=== PATIENT | male | born 1930 | race Caucasian/White ===

== ENCOUNTER 2016-11-11 23:29 | Inpatient (IN) | payer OTHER ==
[~2016-11-11] VITALS: Ht 168.9 cm; Wt 63.1 kg
[~2016-11-11 23:29] MED LIST: ALLO300T47 PO; ASPI-862 PO; CALC600T2 PO; CHOL100038 PO; CLOP75TA2 PO; HYDR100T25 PO; LEVO25TA58 PO; LISI-600 PO; METO50TA7 PO; MULT1TAB PO; OMEP40CA33 PO; SIMV40TA2 PO; VITA100075 PO
[2016-11-11 23:30] VITALS: BP_SYST 158
[2016-11-11] MEDS ORDERED: NITROGLYCERIN 1 INCH (GM) OINT. TP ONE (23:30)
--- NOTE | 2016-11-11 23:30 | NUR ---
Placed in room 1 . Placed on cardiac cath tech, blood pressure machine and pulse oximeter. To gown for exam. Side rails up. Report given to Priti PARISI.
--- NOTE | 2016-11-11 23:35 | NUR ---
ER at bedside examining patient.
[2016-11-11] MEDS ORDERED: MORPHINE 4 MG/ML INJ. SYRINGE IVP ONE (23:36)
[2016-11-11 23:54] LABS: BASOPHILS # (AUTO) 0.1 K/uL (0.0-0.2); BASOPHILS % (AUTO) 1.2 % (0.0-2.0); EOSINOPHILS # (AUTO) 0.1 K/uL (0.0-0.4); EOSINOPHILS % (AUTO) 1.6 % (0.0-4.0); HEMATOCRIT 42.5 % (36-54); HEMOGLOBIN 14.1 g/dL (14.0-18.0); LYMPHOCYTES # (AUTO) 0.7 K/uL (1.0-5.5); LYMPHOCYTES % (AUTO) 8.5 % (20.5-51.5); MEAN CORPUSCULAR HEMOGLOBIN 29 pg (27-31); MEAN CORPUSCULAR HGB CONC 33 % (32-36); MEAN CORPUSCULAR VOLUME 87 fL (79.0-98.0); MONOCYTES # (AUTO) 0.8 K/uL (0.0-1.0); MONOCYTES % (AUTO) 9.3 % (1.7-9.3); NEUTROPHILS # (AUTO) 6.6 K/uL (1.8-7.7); NEUTROPHILS % (AUTO) 79.4 % (40.0-70.0); PLATELET COUNT (AUTO) 206 K/uL (130-430); RED BLOOD CELL COUNT(AUTO) 4.91 MIL/uL (4.2-6.2); RED CELL DISTRIBUTION WIDTH 13.5 % (9.0-15.0); WHITE BLOOD COUNT (AUTO) 8.3 K/uL (4.8-10.8)
[2016-11-12 00:02] LABS: ANION GAP 4 (5-15); CHLORIDE 98 mmol/L (98-107); GLUCOSE 161 mg/dL (70-99); POTASSIUM 4.2 mmol/L (3.5-5.1); SODIUM SERUM 130 mmol/L (136-145)
[2016-11-12 00:03] LABS: UREA NITROGEN, BLOOD 12 mg/dL (8-21)
[2016-11-12 00:06] LABS: CREATININE 0.93 mg/dL (0.55-1.30)
[2016-11-12 00:07] LABS: ALANINE AMINOTRANSFERASE 52 U/L (12-78); ALBUMIN 3.4 g/dL (3.4-4.8); ASPARTATE AMINOTRANSFERASE 45 U/L (10-37); TOTAL BILIRUBIN 0.4 mg/dL (0.0-1.0); TOTAL PROTEIN, SERUM 6.2 g/dL (6.4-8.3)
[2016-11-12] MEDS ORDERED: ONDANSETRON HCL 4 MG/2 ML VIAL IVP ONE ×2 (00:15→01:00)
[2016-11-12] MEDS ORDERED: ONDANSETRON HCL 4 MG/2 ML VIAL ONE (00:22)
[2016-11-12 00:32] LABS: PROTHROMBIN TIME 11.2 SECS (9.5-12.5)
[2016-11-12] MEDS ORDERED: MORPHINE 4 MG/ML INJ. SYRINGE IVP ONE (01:00)
--- NOTE | 2016-11-12 01:13 | NUR ---
PT VOMITING, 400ML, ZOFRAN GIVEN, PT TOLERATED WELL. SAFETY PRECAUTIONS IN PLACE, WILL CONTINUE TO MONITOR.
[2016-11-12] MEDS ORDERED: METOCLOPRAMIDE HCL 10 MG/2 ML VIAL IVP ONE (01:15)
[2016-11-12] MEDS ORDERED: ASPIRIN 325 MG TABLET PO ONE (01:45)
[2016-11-12] MEDS ORDERED: HYDR100T25 PO (01:53)
--- NOTE | 2016-11-12 01:55 | NUR ---
Reviewed with Dr. mSith that pt made need stronger nausea medication and pain medication PRN on telephone. No new orders at this time.
[2016-11-12] MEDS ORDERED: ONDANSETRON HCL 4 MG/2 ML VIAL IVP PRN ×2 (02:00→09:15)
--- NOTE | 2016-11-12 02:25 | NUR ---
Patient will be admitted to care of DR. RONQUILLO. Admitted to TELEMETRY unit. Will go to room 111A. ALL Belongings TAKEN W/ PT. Summary report printed. Report will be given at bedside TO NURSE AILIN GRANDE.
--- NOTE | 2016-11-12 02:27 | NUR ---
ADMISSION: The patient, WILLIAM KARIMI, 86 y/o, M admitted by AAMIR RONQUILLO MD, was given written information regarding hospital policies, unit procedures and contact persons.
[2016-11-12 02:28] VITALS: BP_SYST 159
--- NOTE | 2016-11-12 02:32 | NUR ---
CONSULTATION PAGED REASON FOR CONSULTATION:CHEST PAIN WAS CONSULT CALLED?Y PERSON WHO WAS NOTIFIED:[employer] Pharm[employer]ARIANNAA APPLICATION INTEGRATION ENGINEER #[id number] CONSULTING PHYSICIAN:KENIA PENA (YOHANNES HALL CHRONOGRAPH OPERATOR) TECHNICAL MARKETING CONSULTANT SPECIALTY:CARDIO TECHNICAL MARKETING CONSULTANT PHONE NUMBER:[phone]
--- NOTE | 2016-11-12 03:00 | NUR ---
ROUNDS RECEIVED PATIENT IN BED, NOT IN DISTRESS, BP-159/100 AT THIS TIME, DENIES ANY PAIN AND DISCOMFORT AT THIS TIME. ADMISSION ASSESSMENT DONE AND DOCUMENTED. ORIENTED TO HIS ROOM, TV, PHONE AND CALL LIGHT. PLAN OF CARE DISCUSSED AND PATIENT VERBALIZED UNDERSTANDING. NEEDS ATTENDED TO. SAFETY AND FALL MEASURES IN PLACED. CALL LIGHT PLACED WITHIN REACH.
--- NOTE | 2016-11-12 03:31 | NUR ---
Paged DR. RONQUILLO ( DR. Leroy ornamental ironworking supervisor) Spoke with Silke, phone #[phone]
--- NOTE | 2016-11-12 03:42 | NUR ---
DR. LEDEZMA PAGED AND TALKED TO DR. LEDEZMA, THE HOME THEATER INSTALLER, PATIENT'S BP-163/100, P-100. NEW ORDER GIVEN FOR CLONIDINE 0.1 MG PO X1 NOW. INFORMED ALSO OF PATIENT'S NA-130 AND CLONIDINE PATCH Q TUESDAY, SAID HOLD CLONIDINE PATCH FOR NOW. WILL CONTINUE TO MONITOR.
[2016-11-12] MEDS ORDERED: cloNIDine HCL 0.1 MG TABLET PO ONE (03:45)
[2016-11-12] MEDS ORDERED: PANTOPRAZOLE SODIUM 40 MG/VIAL (PROTONIX) IVP ONE (03:45)
[2016-11-12] MEDS: PANTOPRAZOLE SODIUM 40 MG/VIAL (PROTONIX) IVP SCH ×2 (03:56→09:13)
[2016-11-12 04:00] VITALS: BP_SYST 142
--- NOTE | 2016-11-12 04:00 | NUR ---
PATIENT RESTING: Patient resting quietly. No acute distress noted. Vital signs within normal range.
--- NOTE | 2016-11-12 06:50 | NUR ---
CLOSING NOTES PATIENT ASLEEP AT THIS TIME, NO SIGNS OF ANY PAIN AND DISCOMFORT NOTED, NEEDS ATTENDED TO. SAFETY MEASURES MAINTAINED. CALL LIGHT PLACED WITHIN REACH.
[2016-11-12] MEDS ORDERED: NITROGLYCERIN 0.4 MG TAB.SUBL SL PRN (08:00)
[2016-11-12 08:30] VITALS: BP_SYST 157
--- NOTE | 2016-11-12 08:40 | NUR ---
Received patient in the morning coughing continuously, his 02 Saturation was 86 in seated position, and in lying position he desaturated to 77%. I did inform Dr Leroy at nursing station, and orders written. The patient co chest pain, and I did give Nitro 0.4mg tab SL, and repeated 2 times. Pain level 8/10, and did decrease to 4-5/10. Sukumar Hu RN
[2016-11-12] MEDS ORDERED: ALBUTEROL SULFATE 0.083% 2.5 MG/3 ML VIAL.NEB INH PRN (09:00)
[2016-11-12] MEDS ORDERED: METOPROLOL SUCCINATE 50 MG TAB.SR.24H (TOPROL XL) PO SCH (09:00)
[2016-11-12] MEDS ORDERED: methylPREDNISolone SOD SUCC/PF 62.5 MG/ML VIAL IVP SCH (09:00)
[2016-11-12] MEDS ORDERED: IPRATROPIUM BROM 0.5 MG/2.5 ML VIAL.NEB (ATROVENT) INH PRN (09:00)
[2016-11-12] MEDS ORDERED: FUROSEMIDE 20 MG/2 ML VIAL IVP ONE (09:00)
[2016-11-12] MEDS ORDERED: ENOXAPARIN SODIUM 40 MG/0.4 ML SYRINGE SUBCUT SCH (09:00)
[2016-11-12] MEDS ORDERED: ASPIRIN 325 MG TABLET (ECOTRIN) PO SCH (09:00)
[2016-11-12] MEDS ORDERED: HEPARIN 25,000 UNITS/D5W 250ML 250 ML IV PRN (09:00)
[2016-11-12] MEDS ORDERED: FUROSEMIDE 20 MG/2 ML VIAL ONE (09:05)
[2016-11-12] MEDS ORDERED: IPRATROPIUM/ALBUTEROL SULFATE 3 ML AMPUL.NEB ONE (09:06)
--- NOTE | 2016-11-12 09:08 | NUR ---
CALLED PULMONOLOGY CONSULT TO DR ZAPATA, RE: SOB. SPOKE TO MAYKEL
[2016-11-12] MEDS ORDERED: ACETAMINOPHEN 325 MG TABLET PO PRN (09:15)
[2016-11-12] MEDS ORDERED: IPRATROPIUM BROM 0.5 MG/2.5 ML VIAL.NEB (ATROVENT) INH SCH (11:00)
[2016-11-12] MEDS ORDERED: ALBUTEROL SULFATE 0.083% 2.5 MG/3 ML VIAL.NEB INH SCH (11:00)
[2016-11-12] MEDS ORDERED: HEPARIN 25,000 UNITS in 250 ML PREMIX IV PRN (11:15)
[2016-11-12] MEDS ORDERED: HEPARIN SODIUM,PORCINE 3000 UNITS/0.6 ML BOLUS IVP PRN (11:15)
[2016-11-12] MEDS ORDERED: HEPARIN SODIUM,PORCINE 2000 UNITS/0.4 ML BOLUS IVP PRN (11:15)
[2016-11-12] MEDS ORDERED: HEPARIN SODIUM,PORCINE 5000 UNITS/ML VIAL IV ONE (11:30)
[2016-11-12 11:45] VITALS: BP_SYST 150
[2016-11-12 12:30] VITALS: BP_SYST 152
--- NOTE | 2016-11-12 12:33 | NUR ---
HCP/PA: Polo Garcia made her aware of transfer to [facility] at 2:30pm today via ACLS.
--- NOTE | 2016-11-12 13:40 | NUR ---
Patient being transferred to [facility], and I called nurse assisting with angiogram, and gave report, and also did give report to the sql developer that is transporting patient. Sukumar Hu RN
[2016-11-12 16:57] LABS: BLOOD GAS PH 7.239 (7.350-7.450)
[2016-11-12 16:58] LABS: ABG TOTAL HEMOGLOBIN 16.2 G/dL (12.0-18.0); BLOOD GAS BASE EXCESS -4.8 mmol/L (-3.0-3.0); BLOOD GAS COHb% 0.8 % (0.5-1.5); BLOOD GAS HHB 9.7 % (0.0-6.0); BLOOD O2Hb% 89.1 % (94.0-97.0)
[2016-11-12] MEDS ORDERED: SIMVASTATIN 40 MG TABLET PO SCH (21:00)
[2016-11-12] MEDS ORDERED: OMEPRAZOLE 20 MG CAPSULE.DR (PriLOSEC) PO SCH (21:00)
[2016-11-12] MEDS ORDERED: hydrALAZINE HCL 25 MG TABLET PO SCH (21:00)
[2016-11-13] MEDS ORDERED: LEVOTHYROXINE SODIUM 0.025 MG TABLET PO SCH (07:00)
[2016-11-13] MEDS ORDERED: LISINOPRIL 20 MG TABLET PO SCH (09:00)
[2016-11-13] MEDS ORDERED: CLOPIDOGREL BISULFATE 75 MG TABLET PO SCH (09:00)
[2016-11-13] MEDS ORDERED: ALLOPURINOL 300 MG TABLET (ZYLOPRIM) PO SCH (09:00)
== END 2016-11-12 13:40 | disposition short-term general hospital (02) | DRG 280 ==
LOC: SED 23:29 → STU 11-12 01:55
DX: I21.4 Non-ST elevation (NSTEMI) myocardial infarction (principal); I50.21 Acute systolic (congestive) heart failure; J84.9 Interstitial pulmonary disease, unspecified; I25.10 Atherosclerotic heart disease of native coronary artery without angina pectoris; E03.9 Hypothyroidism, unspecified; E78.5 Hyperlipidemia, unspecified; I25.2 Old myocardial infarction; Z87.891 Personal history of nicotine dependence; Z95.5 Presence of coronary angioplasty implant and graft; Z88.1 Allergy status to other antibiotic agents; Z88.0 Allergy status to penicillin; Z88.6 Allergy status to analgesic agent; Z79.899 Other long term (current) drug therapy; I11.0 Hypertensive heart disease with heart failure
CPT/HCPCS: 36415; 36600; 71010; 71250-TC; 80053; 82803-TC; 83880; 84484; 85025; 85379; 85610-TC; 85730-TC; 93005; 93306; 93970; 94640; 94760; 96374; 96375; 99285; C9113; J1650; J1940; J2270; J2405; J2765; J2930

== ENCOUNTER 2019-07-28 19:49 | Inpatient (IN) | payer OTHER ==
[~2019-07-28] VITALS: Ht 167.6 cm; Wt 72.8 kg
[~2019-07-28 19:49] MED LIST changes: +ALLO-57 PO; -ALLO300T47 PO; +LEVO25TA2 PO; -LEVO25TA58 PO
[2019-07-28 20:00] VITALS: BP_SYST 137
--- NOTE | 2019-07-28 20:08 | NUR ---
Placed in room 1 . Placed on robotics specialist, blood pressure machine and pulse oximeter. To gown for exam. Side rails up. Report given to AILIN BOURNE
--- NOTE | 2019-07-28 20:15 | NUR ---
Patient was BIB family complain of cough x 3 days. Pt denies fever, N/V or diarrhea. Per patient, he has had pneumonia 8 times prior and states "this feels similar to when I had pneumonia." Pt also states when he coughs he feels pain to his chest. Pt is satting at 92% on room air. No other injuries/complaints per patient or noted.
--- NOTE | 2019-07-28 20:25 | NUR ---
ER at bedside examining patient.
[2019-07-28] MEDS ORDERED: IPRATROPIUM/ALBUTEROL SULFATE 3 ML AMPUL.NEB (DUONEB) INH ONE (20:30)
[2019-07-28] MEDS ORDERED: NACL 0.9% 1,000 ML IV ONE (20:30)
--- NOTE | 2019-07-28 20:35 | NUR ---
RT at bedside administering breathing treatment.
[2019-07-28 20:45] LABS: BASOPHILS % (AUTO) 0.3 % (0.0-2.0); EOSINOPHILS # (AUTO) 0.1 K/uL (0.0-0.4); EOSINOPHILS % (AUTO) 0.9 % (0.0-4.0); HEMATOCRIT 39.2 % (36-54); HEMOGLOBIN 12.9 g/dL (14.0-18.0); LYMPHOCYTES # (AUTO) 0.6 K/uL (1.0-5.5); LYMPHOCYTES % (AUTO) 5.6 % (20.5-51.5); MEAN CORPUSCULAR HEMOGLOBIN 28 pg (27-31); MEAN CORPUSCULAR HGB CONC 33 % (32-36); MEAN CORPUSCULAR VOLUME 84 fL (79.0-98.0); MONOCYTES # (AUTO) 1.3 K/uL (0.0-1.0); MONOCYTES % (AUTO) 12.6 % (1.7-9.3); NEUTROPHILS # (AUTO) 8.3 K/uL (1.8-7.7); NEUTROPHILS % (AUTO) 80.6 % (40.0-70.0); PLATELET COUNT (AUTO) 170 K/uL (130-430); RED BLOOD CELL COUNT(AUTO) 4.67 MIL/uL (4.2-6.2); RED CELL DISTRIBUTION WIDTH 17.4 % (9.0-15.0); WHITE BLOOD COUNT (AUTO) 10.3 K/uL (4.8-10.8)
[2019-07-28 20:52] LABS: ANION GAP 8 (5-15); CALCIUM 8.3 mg/dL (8.4-11.0); CHLORIDE 100 mmol/L (98-107); CREATININE 1.34 mg/dL (0.55-1.30); GLUCOSE 119 mg/dL (70-99); POTASSIUM 4.3 mmol/L (3.5-5.1); SODIUM SERUM 136 mmol/L (136-145); UREA NITROGEN, BLOOD 21 mg/dL (8-21)
[2019-07-28 21:01] LABS: ALANINE AMINOTRANSFERASE 153 U/L (12-78); ALBUMIN 3.1 g/dL (3.4-4.8); ASPARTATE AMINOTRANSFERASE 120 U/L (10-37); TOTAL BILIRUBIN 0.5 mg/dL (0.0-1.0)
[2019-07-28 21:04] LABS: INR 1.1 (0.80-1.20); PROTHROMBIN TIME 11.2 SECS (9.5-12.5)
--- NOTE | 2019-07-28 21:53 | NUR ---
Respiratory at bedside for ABG
[2019-07-28] MEDS ORDERED: methylPREDNISolone SOD SUCC/PF 62.5 MG/ML VIAL IVP ONE (22:00)
[2019-07-28] MEDS ORDERED: APIX5TAB4 PO (22:14)
[2019-07-28] MEDS ORDERED: FURO-150 PO (22:15)
[2019-07-28] MEDS ORDERED: LEVO100T9 PO (22:16)
[2019-07-28] MEDS ORDERED: ASPI-1153 PO (22:17)
[2019-07-28 22:18] LABS: BILIRUBIN,URINE NEGATIVE (NEGATIVE); BLOOD, URINE NEGATIVE (NEGATIVE); CLARITY/URINE CLEAR (CLEAR); COLOR,URINE YELLOW (YELLOW); GLUCOSE,URINE NEGATIVE (NEGATIVE); KETONES,URINE NEGATIVE (NEGATIVE); LEUKOCYTE ESTERASE ,URINE NEGATIVE (NEGATIVE); NITRITE, URINE NEGATIVE (NEGATIVE); PROTEIN URINE NEGATIVE (NEGATIVE); UROBILINOGEN,URINE 0.2 (0.2-1.0)
[2019-07-28] MEDS ORDERED: METO25TA3 PO (22:18)
[2019-07-28] MEDS ORDERED: AMI200 PO (22:18)
[2019-07-28] MEDS ORDERED: CALC-995 PO (22:22)
[2019-07-28] MEDS ORDERED: PRO40 PO (22:24)
[2019-07-28] MEDS ORDERED: NOR10 PO (22:25)
[2019-07-28] MEDS ORDERED: LISI40TA4 PO (22:26)
--- NOTE | 2019-07-28 22:27 | NUR ---
Medication reconciliation completed with information provided by patient. Any prior medication reconciliation on file was reviewed and corrected.
--- NOTE | 2019-07-28 22:42 | NUR ---
Medications were given, pt tolerate well. No adverse reaction, will continue to monitor.
--- NOTE | 2019-07-28 22:45 | NUR ---
Patient will be admitted to care of Dr. Leroy. Admitted to Telemetry unit. Will go to room 108 C. Belongings list completed. Complete and up to date summary report printed. SBAR report to be given at bedside with opportunity for questions.
--- NOTE | 2019-07-28 22:46 | NUR ---
Transfer to Telemetry via ACLS protocol. Licensed nurse present. IV present no signs or symptoms of infiltration.
--- NOTE | 2019-07-28 23:00 | NUR ---
ADMIT NOTE Received pt from ER to the floor with a diagnosis of PNA. Admission process initiated. patient oriented to pain management, safety and call light-teach back done.
[2019-07-28 23:08] VITALS: BP_SYST 128
--- NOTE | 2019-07-28 23:10 | NUR ---
INITIAL ASSESSMENT PATIENT IS LAYING IN BED AND STABLE. FAMILY IS BY BEDSIDE AT THIS TIME. EDUCATED PATIENT AND FAMILY ABOUT CALL LIGHT. CALL LIGHT EDUCATION IS SUCCESSFUL AT THIS TIME AND PATIENT IS ABLE TO DEMONSTRATE USAGE. PLAN OF CARE WAS DISCUSSED WITH PATIENT AND FAMILY AT THIS TIME. PATIENT HAS A LEFT 22 G AND IS PATENT. WOUND PICTURES ARE TAKEN AT THIS TIME. PATIENT VERBALIZES PAIN OF 5. PATIENT STATES THIS IS TOLERABLE PAIN AND REQUEST TO SLEEP. WILL CONTINUE TO MONITOR PAIN AND RESPIRATORY STATUS. BED IS LOCKED, ALARMED, AND AT THE LOWEST POSITION. DANNY LIGHT IN REACH. FALL, SAFETY, ASPIRATION, AND RESPIRATORY PRECAUTIONS WILL BE PLACED THROUGHOUT THE SHIFT.
[2019-07-29 00:30] VITALS: BP_SYST 120
--- NOTE | 2019-07-29 01:10 | NUR ---
EDUCATION EDUCATED PATIENT ON DIAPER/UNDERGARMENT. PATIENT REFUSED AND REQUESTED TO CONTINUE TO WEAR IT. WILL CONTINUE TO EDUCATED. DESPITE EDUCATIONAL EFFORTS PATIENT REQUESTED TO WEAR HIS OWN SOCKS. PATIENT IS CURRENTLY WEARING REGULAR SOCKS. WILL CONTINUE TO EDUCATE. OTHERWISE, PATIENT IS STABLE AND SHOWS NO S/S OF RESPIRATORY DISTRESS. CALL LIGHT IN REACH. WILL CONTINUE TO MONITOR.
--- NOTE | 2019-07-29 02:10 | NUR ---
ROUNDS PATIENT IS LAYING IN BED AND REQUESTED JELLO AT THIS TIME. PATIENT IS OTHERWISE STABLE. NO S/S OF RESPIRATORY DISTRESS NOTED. CALL LIGHT IN REACH. BED IS LOCKED, ALARMED, AND AT THE LOWEST POSITION.
--- NOTE | 2019-07-29 02:25 | NUR ---
DR BOWMAN - ROUNDS DR. BOWMAN CAME IN AND SAW THE PATIENT.
[2019-07-29] MEDS ORDERED: ALBUTEROL SULFATE 0.083% 2.5 MG/3 ML VIAL.NEB INH PRN (02:30)
[2019-07-29] MEDS ORDERED: KETOROLAC TROMETHAMINE 15 MG VIAL IVP PRN (02:45)
--- NOTE | 2019-07-29 04:00 | NUR ---
ROUNDS PATIENT IS SLEEPING IN BED. NO S/S OF RESPIRATORY DISTRESS NOTED. CALL LIGHT IN REACH. BED IS LOCKED, ALARMED, AND AT THE LOWEST POSITION. WILL CONTINUE TO MONITOR.
[2019-07-29 05:28] VITALS: BP_SYST 120
--- NOTE | 2019-07-29 06:00 | NUR ---
CLOSING NOTES PATIENT IS STABLE AND IN BED. NO S/S OF RESPIRATORY DISTRESS NOTED. CALL LIGHT IN REACH. BED IS LOCKED, ALARMED, AND AT THE LOWEST POSITION. FALL, SAFETY, ASPIRATION, AND CONTACT PRECAUTIONS HAS BEEN PLACED THROUGHOUT THE SHIFT. WILL CONTINUE TO MONITOR UNTIL REPORT IS GIVEN TO AM NURSE AT BEDSIDE.
[2019-07-29] MEDS: LEVOTHYROXINE SODIUM 0.1 MG TABLET PO SCH (06:18)
[2019-07-29 07:41] LABS: BASOPHILS % (AUTO) 0.2 % (0.0-2.0); HEMATOCRIT 34.5 % (36-54); HEMOGLOBIN 11.6 g/dL (14.0-18.0); LYMPHOCYTES # (AUTO) 0.2 K/uL (1.0-5.5); LYMPHOCYTES % (AUTO) 3.2 % (20.5-51.5); MEAN CORPUSCULAR HEMOGLOBIN 28 pg (27-31); MEAN CORPUSCULAR HGB CONC 34 % (32-36); MEAN CORPUSCULAR VOLUME 85 fL (79.0-98.0); MONOCYTES # (AUTO) 0.2 K/uL (0.0-1.0); MONOCYTES % (AUTO) 2.1 % (1.7-9.3); NEUTROPHILS # (AUTO) 7.3 K/uL (1.8-7.7); NEUTROPHILS % (AUTO) 94.5 % (40.0-70.0); PLATELET COUNT (AUTO) 151 K/uL (130-430); RED BLOOD CELL COUNT(AUTO) 4.08 MIL/uL (4.2-6.2); RED CELL DISTRIBUTION WIDTH 17.5 % (9.0-15.0); WHITE BLOOD COUNT (AUTO) 7.7 K/uL (4.8-10.8)
[2019-07-29 07:58] LABS: ALANINE AMINOTRANSFERASE 138 U/L (12-78); ALBUMIN 2.4 g/dL (3.4-4.8); ANION GAP 5 (5-15); ASPARTATE AMINOTRANSFERASE 104 U/L (10-37); CHLORIDE 102 mmol/L (98-107); CREATININE 1.09 mg/dL (0.55-1.30); GLUCOSE 186 mg/dL (70-99); POTASSIUM 4.5 mmol/L (3.5-5.1); SODIUM SERUM 135 mmol/L (136-145); TOTAL BILIRUBIN 0.5 mg/dL (0.0-1.0); UREA NITROGEN, BLOOD 19 mg/dL (8-21)
[2019-07-29 08:08] VITALS: BP_SYST 125
--- NOTE | 2019-07-29 08:12 | NUR ---
am rounds: Patient is oriented x4. Non productive cough noted with pain at 4/10.Ambulates to the bathroom independently. With oxygen 2 li/min via nasal cannula with 95% saturation. Daughter in law at the bedside.
[2019-07-29] MEDS: ASPIRIN 81 MG TABLET(ECOTRIN) PO SCH (09:53)
[2019-07-29] MEDS: AMIODARONE HCL 200 MG TABLET PO SCH (09:53)
[2019-07-29] MEDS: FUROSEMIDE 20 MG TABLET PO SCH (09:53)
[2019-07-29] MEDS: ALLOPURINOL 300 MG TABLET (ZYLOPRIM) PO SCH (09:53)
[2019-07-29] MEDS: PANTOPRAZOLE SODIUM 40 MG TAB PO SCH (09:53)
[2019-07-29] MEDS: METOPROLOL SUCCINATE 25 MG TAB.SR.24H (TOPROL XL) PO SCH (09:54)
[2019-07-29] MEDS: APIXABAN 2.5 MG TABLET PO SCH ×2 (09:56→20:49)
[2019-07-29] MEDS: LISINOPRIL 20 MG TABLET PO SCH ×2 (09:58→20:46)
[2019-07-29] MEDS: amLODIPine BESYLATE 10 MG TABLET PO SCH (09:59)
--- NOTE | 2019-07-29 11:00 | NUR ---
md rounds: seen by Dr. Sandra Walters. Orders noted.
[2019-07-29 11:27] VITALS: BP_SYST 109
--- NOTE | 2019-07-29 15:19 | NUR ---
Incentive spirometer: Patient is using the incentive spirometer, reaches level 1500.
[2019-07-29 15:51] VITALS: BP_SYST 114
--- NOTE | 2019-07-29 18:40 | NUR ---
End of shift: Needs attended. No change in assessment. Family member at bedside.
[2019-07-29 19:30] VITALS: BP_SYST 121
--- NOTE | 2019-07-29 19:30 | NUR ---
INITIAL ASSESSMENT PATIENT IS LAYING IN BED AND STABLE. FAMILY IS BY BEDSIDE. PLAN OF CARE DISCUSSED WITH PATIENT AT THIS TIME. PATIENT SUCCESSFULLY DEMONSTRATES USAGE OF CALL LIGHT AT THIS TIME. BED IS LOCKED, ALARMED, AND AT THE LOWEST POSITION. FALL, SAFETY, ASPIRATION, AND RESPIRATORY PRECAUTIONS HAS BEEN PLACED THROUGHOUT THE SHIFT. PATIENT VERBALIZES NO PAIN AT THIS TIME. WILL CONTINUE TO MONITOR.
[2019-07-29] MEDS: SIMVASTATIN 40 MG TABLET PO SCH (20:45)
[2019-07-29] MEDS: TEMAZEPAM 7.5 MG CAPSULE PO PRN (20:46)
[2019-07-29] MEDS: LEVOFLOXACIN 500 MG/D5W 100 ML IV SCH (20:52)
--- NOTE | 2019-07-29 22:30 | NUR ---
TRANSFER OF CARE TRANSFER OF CARE GIVEN TO AILIN ROTHMAN AT BEDSIDE AT THIS TIME. PATIENT IS STABLE. NO S/S OF RESPIRATORY DISTRESS NOTED. CALL LIGHT IN REACH. BED IS LOCKED, ALARMED, AND AT THE LOWEST POSITION.
[2019-07-30] VITALS: BP_SYST 109
[2019-07-30 04:00] VITALS: BP_SYST 117
--- NOTE | 2019-07-30 06:34 | NUR ---
AWAKE AND AMBULATED TO THE BATHROOM WITH FAMILY ASSIST.
[2019-07-30] MEDS: LEVOTHYROXINE SODIUM 0.1 MG TABLET PO SCH (06:48)
--- NOTE | 2019-07-30 06:59 | NUR ---
Nutrition Update Hieu Scale 18 noted. Pt admitted for Pneumonia Diet: Cardiac BMI: 26 kg/m2 RD to follow per nutrition care standards.
[2019-07-30 07:36] LABS: BASOPHILS % (AUTO) 0.1 % (0.0-2.0); HEMATOCRIT 34.4 % (36-54); HEMOGLOBIN 11.5 g/dL (14.0-18.0); LYMPHOCYTES # (AUTO) 0.5 K/uL (1.0-5.5); LYMPHOCYTES % (AUTO) 3.4 % (20.5-51.5); MEAN CORPUSCULAR HEMOGLOBIN 28 pg (27-31); MEAN CORPUSCULAR HGB CONC 33 % (32-36); MEAN CORPUSCULAR VOLUME 84 fL (79.0-98.0); MONOCYTES % (AUTO) 6.5 % (1.7-9.3); NEUTROPHILS # (AUTO) 13.8 K/uL (1.8-7.7); PLATELET COUNT (AUTO) 185 K/uL (130-430); RED BLOOD CELL COUNT(AUTO) 4.12 MIL/uL (4.2-6.2); RED CELL DISTRIBUTION WIDTH 17.4 % (9.0-15.0); WHITE BLOOD COUNT (AUTO) 15.3 K/uL (4.8-10.8)
[2019-07-30 07:51] LABS: ALANINE AMINOTRANSFERASE 168 U/L (12-78); ALBUMIN 2.4 g/dL (3.4-4.8); ANION GAP 3 (5-15); ASPARTATE AMINOTRANSFERASE 97 U/L (10-37); CALCIUM 8.3 mg/dL (8.4-11.0); CHLORIDE 99 mmol/L (98-107); CREATININE 0.96 mg/dL (0.55-1.30); GLUCOSE 131 mg/dL (70-99); POTASSIUM 4.6 mmol/L (3.5-5.1); SODIUM SERUM 128 mmol/L (136-145); TOTAL BILIRUBIN 0.4 mg/dL (0.0-1.0); UREA NITROGEN, BLOOD 27 mg/dL (8-21)
[2019-07-30 08:00] VITALS: BP_SYST 117
--- NOTE | 2019-07-30 08:00 | NUR ---
initial notes rec patient awake alert with ivl on the l ac intact. no infiltration noted. resp easy and unlabored and no sob noted. bed to the lowest position and side rails up and locked. call light within reached and knows when to call for assistance. family at bedside. denies pain at this time.
[2019-07-30] MEDS: APIXABAN 2.5 MG TABLET PO SCH ×2 (09:00→21:24)
[2019-07-30] MEDS: PANTOPRAZOLE SODIUM 40 MG TAB PO SCH (09:01)
[2019-07-30] MEDS: amLODIPine BESYLATE 10 MG TABLET PO SCH (09:02)
[2019-07-30] MEDS: ALLOPURINOL 300 MG TABLET (ZYLOPRIM) PO SCH (09:02)
[2019-07-30] MEDS: ASPIRIN 81 MG TABLET(ECOTRIN) PO SCH (09:02)
[2019-07-30] MEDS: LISINOPRIL 20 MG TABLET PO SCH ×2 (09:03→21:21)
[2019-07-30] MEDS: FUROSEMIDE 20 MG TABLET PO SCH (09:03)
[2019-07-30] MEDS: AMIODARONE HCL 200 MG TABLET PO SCH (09:04)
[2019-07-30] MEDS: METOPROLOL SUCCINATE 25 MG TAB.SR.24H (TOPROL XL) PO SCH (09:05)
--- NOTE | 2019-07-30 10:00 | NUR ---
rounds due meds given and lorene well. call light within reached. no sob noted.
[2019-07-30 11:36] VITALS: BP_SYST 91
--- NOTE | 2019-07-30 14:00 | NUR ---
rounds sleeping at intervals. no sob noted.
[2019-07-30 15:49] VITALS: BP_SYST 117
--- NOTE | 2019-07-30 16:46 | NUR ---
md dr lee at bedside to see patient. no sob noted. bed to the lowest position and side rails up and locked. family in the room.
[2019-07-30] MEDS ORDERED: ALBUTEROL SULFATE 0.083% 2.5 MG/3 ML VIAL.NEB INH PRN (17:15)
[2019-07-30] MEDS ORDERED: BENZOCAINE/MENTHOL 1 EACH LOZENGE MM PRN (17:15)
[2019-07-30] MEDS ORDERED: IPRATROPIUM BROM 0.5 MG/2.5 ML VIAL.NEB (ATROVENT) INH PRN (17:15)
--- NOTE | 2019-07-30 18:40 | NUR ---
closing notes seen by dr freire at bedside and with orders. no osb noted. bed to the lowest position and side rails u p and locked. family at bedside.
[2019-07-30] MEDS: IPRATROPIUM BROM 0.5 MG/2.5 ML VIAL.NEB (ATROVENT) INH SCH (18:56)
[2019-07-30] MEDS: ALBUTEROL SULFATE 0.083% 2.5 MG/3 ML VIAL.NEB INH SCH (18:57)
[2019-07-30 20:38] VITALS: BP_SYST 112
[2019-07-30] MEDS: LEVOFLOXACIN 500 MG/D5W 100 ML IV SCH (21:22)
[2019-07-30] MEDS: SIMVASTATIN 40 MG TABLET PO SCH (21:22)
[2019-07-30] MEDS: TEMAZEPAM 7.5 MG CAPSULE PO PRN (21:23)
[2019-07-31] MEDS: IPRATROPIUM BROM 0.5 MG/2.5 ML VIAL.NEB (ATROVENT) INH SCH ×4 (00:45→20:11)
[2019-07-31] MEDS: ALBUTEROL SULFATE 0.083% 2.5 MG/3 ML VIAL.NEB INH SCH ×4 (00:45→20:11)
[2019-07-31 04:23] VITALS: BP_SYST 131
[2019-07-31] MEDS: LEVOTHYROXINE SODIUM 0.1 MG TABLET PO SCH (06:23)
[2019-07-31 07:27] LABS: BASOPHILS % (AUTO) 0.2 % (0.0-2.0); EOSINOPHILS # (AUTO) 0.1 K/uL (0.0-0.4); EOSINOPHILS % (AUTO) 0.8 % (0.0-4.0); HEMATOCRIT 32.9 % (36-54); LYMPHOCYTES # (AUTO) 0.7 K/uL (1.0-5.5); LYMPHOCYTES % (AUTO) 7.2 % (20.5-51.5); MEAN CORPUSCULAR HEMOGLOBIN 28 pg (27-31); MEAN CORPUSCULAR HGB CONC 34 % (32-36); MEAN CORPUSCULAR VOLUME 84 fL (79.0-98.0); MONOCYTES % (AUTO) 11.1 % (1.7-9.3); NEUTROPHILS # (AUTO) 7.3 K/uL (1.8-7.7); NEUTROPHILS % (AUTO) 80.7 % (40.0-70.0); PLATELET COUNT (AUTO) 184 K/uL (130-430); RED BLOOD CELL COUNT(AUTO) 3.93 MIL/uL (4.2-6.2); RED CELL DISTRIBUTION WIDTH 17.3 % (9.0-15.0)
[2019-07-31 07:59] LABS: ALANINE AMINOTRANSFERASE 131 U/L (12-78); ALBUMIN 2.2 g/dL (3.4-4.8); ANION GAP 5 (5-15); ASPARTATE AMINOTRANSFERASE 57 U/L (10-37); CALCIUM 7.8 mg/dL (8.4-11.0); CHLORIDE 102 mmol/L (98-107); CREATININE 0.98 mg/dL (0.55-1.30); GLUCOSE 110 mg/dL (70-99); POTASSIUM 4.9 mmol/L (3.5-5.1); SODIUM SERUM 135 mmol/L (136-145); TOTAL BILIRUBIN 0.5 mg/dL (0.0-1.0); UREA NITROGEN, BLOOD 22 mg/dL (8-21)
[2019-07-31 08:00] VITALS: BP_SYST 110
--- NOTE | 2019-07-31 08:00 | NUR ---
initial notes rec patient awake alert with ivl in place. no infiltration noted. resp easy and unlabored. no sob noted. bed to the lowest position and side rails up and locked. call light within reached and knows when to call for assistance.
[2019-07-31] MEDS: ASPIRIN 81 MG TABLET(ECOTRIN) PO SCH (10:25)
[2019-07-31] MEDS: ALLOPURINOL 300 MG TABLET (ZYLOPRIM) PO SCH (10:25)
[2019-07-31] MEDS: APIXABAN 2.5 MG TABLET PO SCH ×2 (10:26→20:37)
[2019-07-31] MEDS: FUROSEMIDE 20 MG TABLET PO SCH (10:27)
[2019-07-31] MEDS: amLODIPine BESYLATE 10 MG TABLET PO SCH (10:27)
[2019-07-31] MEDS: PANTOPRAZOLE SODIUM 40 MG TAB PO SCH (10:28)
[2019-07-31] MEDS: AMIODARONE HCL 200 MG TABLET PO SCH (10:28)
[2019-07-31] MEDS: LISINOPRIL 20 MG TABLET PO SCH ×2 (10:29→20:31)
[2019-07-31] MEDS: METOPROLOL SUCCINATE 25 MG TAB.SR.24H (TOPROL XL) PO SCH (10:30)
--- NOTE | 2019-07-31 11:00 | NUR ---
rounds seen by dr wilson at bedside and meds given also and lorene well.
[2019-07-31 11:28] VITALS: BP_SYST 123
--- NOTE | 2019-07-31 14:00 | NUR ---
rounds seen by dr lee and with orders. pt ambulated on the hallway and desat after the walk 80%. no sob noted.
[2019-07-31] MEDS ORDERED: LEVO500T89 PO (14:15)
[2019-07-31] MEDS ORDERED: ALBU2.5V7 INH (14:17)
[2019-07-31 15:44] VITALS: BP_SYST 113
--- NOTE | 2019-07-31 16:37 | NUR ---
MD CLARA GIRON CALLED AT SPOKE WITH DR.JANDIAL TORO RAJNISH RIPPER OPERATOR.
--- NOTE | 2019-07-31 16:51 | NUR ---
rounds dr wilson was called re abg result and ordered for patient to go home with o2. maru nuñez was called and stated to call the after hour office for the equipment.
--- NOTE | 2019-07-31 18:24 | NUR ---
closing notes faxed ordered for o2 and abg to [facility] and waiting for them to call re the delivery of o2 at bedside. no sob noted. bed to the lowest position and side rails up and locked. call light within reached and knows when to call for assistance.
[2019-07-31 19:00] VITALS: BP_SYST 127
--- NOTE | 2019-07-31 19:15 | NUR ---
change of shift.pt.presents quiescent affect;calm.dtr-in-law@bedside.pt.possible d/c home tonight;07/31/19.pt.is awaiting the delivery of o2-tank to accompany pt's return home.pt.pt.presents quiescent affect;calm,resting viewing programming via telephone. no c/o pain,nausea.pt.capable to reposition self;ambulate.pt.presents iv access ;intact;patent iv lock.general status stable.respiratory status stable; slightly labored.o2 sat%=93%the o2 is administered@the rate:2l/min.via nasal cannulae.call light/telephone w/in reach of the pt.
--- NOTE | 2019-07-31 19:52 | NUR ---
Paged Dr. Gonzaelz s/w Denita
--- NOTE | 2019-07-31 20:00 | NUR ---
pt.assessed.v/s assessed.values w/in normal limits.no c/o pain,nausea.i have apprised the pt.that i may provide snacks/ beverages w/in the shift.pt.had stated he must consume gluten free food products;items.i have provided apple sauce. pt.capable to ambulate;reposition self.pt.presents iv access;iv lock;intact;patent.pt.presents o2 therapy;administered @the rate;2l/m,in.via nasal cannulae.call light/telephone w/in reach of the pt.
[2019-07-31] MEDS: LEVOFLOXACIN 500 MG/D5W 100 ML IV SCH (20:31)
[2019-07-31] MEDS: SIMVASTATIN 40 MG TABLET PO SCH (20:31)
[2019-07-31] MEDS: TEMAZEPAM 7.5 MG CAPSULE PO PRN (20:35)
--- NOTE | 2019-07-31 20:45 | NUR ---
had been paged;re;pt's d/c home.pt presents no transportation and pt.awaiting the delivery of the o2-tank fro the return drive home. had ordered to hold the d/c home:07/31/19 re;pt's presents no transportation home and the o2- tank has not been delivered the [facility]@this hour.i have apprised the pt.that the d/c home order;07/31/19 had been d/c and he will d/c home in the am;08/01/18.dtr-in-law appreciated the 's order;for d/c home;08/01/19.
--- NOTE | 2019-07-31 21:00 | NUR ---
2100p medications administered.pt capable to ingest medication whole w/out difficulty.i have administered the levaquin;abx;ivbp.pt.had requested ice water.i have provided the ice water.
--- NOTE | 2019-07-31 22:00 | NUR ---
pt.assessed.pt.presents quiescent affect;calm,resting.no c/o pain,nausea.no requests posited@this hour. pt.capable to reposition self.call light/telephone w/in reach of the pt.
--- NOTE | 2019-07-31 22:45 | NUR ---
the senior sales representative of the o2 therapy company has arrived and has presented the o2-tank which the pt.is to utilize for the return to home:08/10/2019.the senior sales representative has reviewed the operation of the o2-tank unit.i have apprised the pt. that nsg/ r/t sdch will review the operation of the o2-tank p/t to d/c home.
[2019-08-01] VITALS: BP_SYST 125
--- NOTE | 2019-08-01 | NUR ---
pt.assessed.v/s assessed/values w/in normal limits.no c/o pain,nausea.no requests posited@this hour.pt.assisted to the restroom.i have assessed the gait;steady.o2-sat%=94%.general status stable.respiratory status stable.call light/telephone w/in reach of the pt.
[2019-08-01] MEDS: IPRATROPIUM BROM 0.5 MG/2.5 ML VIAL.NEB (ATROVENT) INH SCH ×2 (01:05→07:32)
[2019-08-01] MEDS: ALBUTEROL SULFATE 0.083% 2.5 MG/3 ML VIAL.NEB INH SCH ×2 (01:05→07:31)
--- NOTE | 2019-08-01 02:00 | NUR ---
pt.assessed.pt.presents quiescent affect;calm.pt,utilizing own diapers.dtr-in-law has provided the pt.w/a diaper; home. no requests posited@this hour.general status stable.respiratory status stable;o2-sat%=94%.call light/.telephone w/in reach of the pt.
--- NOTE | 2019-08-01 04:00 | NUR ---
pt.assessed.pt.presents quiescent affect;calm,somnolent.general status stable.respiratory status stable;o2-sat%=94%. pt.capable to reposition self.call light/telephone placed w/in reach of the pt.
--- NOTE | 2019-08-01 06:10 | NUR ---
pt.assessed.pt.presents quiescent affect;calm,somnolent.pt capable to reposition self.general status stable.respiratory status stable; o2-sat%=93%.no c/o pain,nausea.call light/telephone placed w/in reach of the pt.
[2019-08-01] MEDS: LEVOTHYROXINE SODIUM 0.1 MG TABLET PO SCH (06:28)
--- NOTE | 2019-08-01 07:10 | NUR ---
Opening Note Received report from shiftman RN. Received pt AAOx4, no complaints of pain. Pt has oxygen for home at bedside for discharge, per report and pt, pt will coordinate with company providing oxygen to meet and arrange for home oxygen since tank at bedside only lasts for 4 hours.
[2019-08-01 08:00] VITALS: BP_SYST 110
[2019-08-01] MEDS: amLODIPine BESYLATE 10 MG TABLET PO SCH (09:06)
[2019-08-01] MEDS: AMIODARONE HCL 200 MG TABLET PO SCH (09:07)
[2019-08-01] MEDS: METOPROLOL SUCCINATE 25 MG TAB.SR.24H (TOPROL XL) PO SCH (09:07)
[2019-08-01] MEDS: FUROSEMIDE 20 MG TABLET PO SCH (09:08)
[2019-08-01] MEDS: ALLOPURINOL 300 MG TABLET (ZYLOPRIM) PO SCH (09:08)
[2019-08-01] MEDS: PANTOPRAZOLE SODIUM 40 MG TAB PO SCH (09:08)
[2019-08-01] MEDS: LISINOPRIL 20 MG TABLET PO SCH (09:08)
[2019-08-01] MEDS: APIXABAN 2.5 MG TABLET PO SCH (09:17)
[2019-08-01] MEDS: ASPIRIN 81 MG TABLET(ECOTRIN) PO SCH (09:18)
[2019-08-01 10:54] VITALS: BP_SYST 110
[2019-08-01 12:00] VITALS: BP_SYST 111
--- NOTE | 2019-08-01 12:00 | NUR ---
D/C Patient Patient and [id number]-ash given medication reconciliation form and D/C instructions. Exit Care provided. Patient verbalized understanding. MD discussed with patient the results and treatment provided. Ambulatory with steady gait for discharge to home. Escorted via wheelchair Patient in stable condition, ID band removed. IV catheter removed, tip intact and dressing applied, bleeding controlled, no active bleeding. Rx of albuterol and levaquin given. Patient educated on pain management. All belongings sent with patient.
== END 2019-08-01 12:00 | disposition home or self-care (01) | DRG 682 ==
LOC: SED 19:49 → STU 22:13
PROVIDERS: ADMIT Internal Medicine Hospice and Palliative Medicine; ATTEND Internal Medicine Hospice and Palliative Medicine
DX: N17.0 Acute kidney failure with tubular necrosis (principal); J18.9 Pneumonia, unspecified organism; J96.01 Acute respiratory failure with hypoxia; E43 Unspecified severe protein-calorie malnutrition; E87.1 Hypo-osmolality and hyponatremia; J61 Pneumoconiosis due to asbestos and other mineral fibers; N28.9 Disorder of kidney and ureter, unspecified; E03.9 Hypothyroidism, unspecified; E83.51 Hypocalcemia; I10 Essential (primary) hypertension; D64.9 Anemia, unspecified; M10.9 Gout, unspecified; I25.10 Atherosclerotic heart disease of native coronary artery without angina pectoris; I25.2 Old myocardial infarction; Z82.49 Family history of ischemic heart disease and other diseases of the circulatory system; Z85.46 Personal history of malignant neoplasm of prostate; Z87.891 Personal history of nicotine dependence; Z90.79 Acquired absence of other genital organ(s); Z95.1 Presence of aortocoronary bypass graft; Z88.1 Allergy status to other antibiotic agents; Z88.0 Allergy status to penicillin; Z79.82 Long term (current) use of aspirin; Z79.899 Other long term (current) drug therapy; Z90.49 Acquired absence of other specified parts of digestive tract; Z68.25 Body mass index [BMI] 25.0-25.9, adult
CPT/HCPCS: 36415; 36600; 71045; 80053; 81003; 82803-TC; 83605; 84484; 85025; 85610-TC; 85730-TC; 87040-TC; 87086; 93005; 93306; 94640; 94760; 96365; 96375; 99285; G0378; J1956; J2930; J7613; J7620

== ENCOUNTER 2019-08-04 16:17 | Inpatient (IN) | payer OTHER ==
[~2019-08-04] VITALS: Ht 167.6 cm; Wt 70.8 kg
[~2019-08-04 16:17] MED LIST changes: +ALBU2.5V7 INH; +AMI200 PO; +APIX5TAB4 PO; +ASPI-1153 PO; +CALC-995 PO; +FURO-150 PO; +LEVO100T9 PO; +LEVO500T89 PO; +LISI40TA4 PO; +METO25TA3 PO; +NOR10 PO; +PRO40 PO
[2019-08-04 16:24] VITALS: BP_SYST 98
[2019-08-04] MEDS ORDERED: NACL 0.9% 1,000 ML IV ONE (16:38)
--- NOTE | 2019-08-04 16:42 | NUR ---
Patient to ER bed 01 to gown for evaluation. Side rails up.
--- NOTE | 2019-08-04 16:43 | NUR ---
Patient arrived in the ED accompanied by his daughter, c/o SOB for 1 week. Patient is alert and oriented x4, respirations labored, patient is having productive cough, speaking in full sentences. VSS, pain level 4/10. Informed of wait time. Daughter at bedside. Instructed to notify ED staff for any changes in condition while waiting to be seen by the doctor. Patient verbalized understanding.
[2019-08-04] MEDS ORDERED: IPRATROPIUM BROM 0.5 MG/2.5 ML VIAL.NEB (ATROVENT) INH ONE (16:45)
[2019-08-04] MEDS ORDERED: ACETAMINOPHEN 500 MG TABLET PO ONE (16:45)
[2019-08-04] MEDS ORDERED: CLINDAMYCIN 900 mg/50mL D5W 50 ML IV ONE (16:45)
[2019-08-04] MEDS ORDERED: MAGNESIUM SULFATE 1 GM in NS 50 ML IV ONE (16:45)
[2019-08-04] MEDS ORDERED: methylPREDNISolone SOD SUCC/PF 62.5 MG/ML VIAL IVP ONE (16:45)
[2019-08-04] MEDS ORDERED: ALBUTEROL SULFATE 0.083% 2.5 MG/3 ML VIAL.NEB INH ONE (16:45)
--- NOTE | 2019-08-04 16:47 | NUR ---
ER at bedside examining patient.
[2019-08-04] MEDS ORDERED: VANCOMYCIN HCL 750 MG in NS 250 ML IV ONE (17:00)
--- NOTE | 2019-08-04 17:00 | NUR ---
ECG done at bedside as ordered by Dr. Hull. Patient tolerated the procedure well.
[2019-08-04 17:27] LABS: ANION GAP 5 (5-15); CHLORIDE 99 mmol/L (98-107); CREATININE 1.12 mg/dL (0.55-1.30); GLUCOSE 136 mg/dL (70-99); POTASSIUM 4.1 mmol/L (3.5-5.1); SODIUM SERUM 129 mmol/L (136-145); UREA NITROGEN, BLOOD 22 mg/dL (8-21)
[2019-08-04 17:33] LABS: INR 1.2 (0.80-1.20); PROTHROMBIN TIME 12.4 SECS (9.5-12.5)
[2019-08-04 17:34] LABS: BASOPHILS % (AUTO) 0.3 % (0.0-2.0); EOSINOPHILS # (AUTO) 0.1 K/uL (0.0-0.4); EOSINOPHILS % (AUTO) 0.8 % (0.0-4.0); HEMATOCRIT 37.8 % (36-54); HEMOGLOBIN 12.4 g/dL (14.0-18.0); LYMPHOCYTES # (AUTO) 0.3 K/uL (1.0-5.5); LYMPHOCYTES % (AUTO) 2.3 % (20.5-51.5); MEAN CORPUSCULAR HEMOGLOBIN 28 pg (27-31); MEAN CORPUSCULAR HGB CONC 33 % (32-36); MEAN CORPUSCULAR VOLUME 85 fL (79.0-98.0); MONOCYTES # (AUTO) 1.5 K/uL (0.0-1.0); MONOCYTES % (AUTO) 10.5 % (1.7-9.3); NEUTROPHILS # (AUTO) 12.4 K/uL (1.8-7.7); NEUTROPHILS % (AUTO) 86.1 % (40.0-70.0); PLATELET COUNT (AUTO) 310 K/uL (130-430); RED BLOOD CELL COUNT(AUTO) 4.47 MIL/uL (4.2-6.2); WHITE BLOOD COUNT (AUTO) 14.4 K/uL (4.8-10.8)
[2019-08-04] MEDS ORDERED: MAGNESIUM SULFATE 1 GM/2 ML VIAL ONE (17:44)
[2019-08-04 17:46] LABS: ALANINE AMINOTRANSFERASE 158 U/L (12-78); ALBUMIN 2.4 g/dL (3.4-4.8); ASPARTATE AMINOTRANSFERASE 111 U/L (10-37); LIPASE 68 U/L (73-393); TOTAL BILIRUBIN 0.7 mg/dL (0.0-1.0)
[2019-08-04] MEDS ORDERED: VANCOMYCIN HCL 1000 MG/VIAL IV ONE (17:46)
--- NOTE | 2019-08-04 18:30 | NUR ---
# 18 gauge angiocath placed to RAC. Use of asceptic technique. Opsite placed over site. Blood return noted. Blood for lab drawn from site. Flushed with 10 cc of normal saline. No evidence of infiltration noted. Patient tolerated well.
--- NOTE | 2019-08-04 18:50 | NUR ---
Administered Vanco, Clindamycin, Tylenol, Magnesium Sulfate as ordered by Dr. Hull. Patient tolerated the medications well.
--- NOTE | 2019-08-04 19:41 | NUR ---
Report given and care transferred to AILIN Barraza
--- NOTE | 2019-08-04 19:45 | NUR ---
Pt alert, responsive, AAOx4, respirations even and mildly labored with RR 24 on O2 at 15L per Venturi Mask at 50% FiO2, SPO2 94%. T 101.5, ice packs applied to bilat axillas. Pt denies c/o pain or discomfort. Sips of ice water provided. Family members at bedside. Dr. Banks to be notified about elevated temperature.
--- NOTE | 2019-08-04 19:56 | NUR ---
Spoke with Dr. Banks to inform of T 101.5. Verbal orders received and noted to place pt on cooling measures and to administer Tylenol 650 mg x 1 tab PO now.
--- NOTE | 2019-08-04 20:14 | NUR ---
Patient will be admitted to care of Dr. Leroy. Admitted to Tele unit. Will go to room 108C. Belongings list completed. Complete and up to date summary report printed. SBAR report to be given at bedside with opportunity for questions.
[2019-08-04] MEDS ORDERED: ACETAMINOPHEN 325 MG TABLET PO ONE (20:15)
--- NOTE | 2019-08-04 20:30 | NUR ---
Specimen for MRSA collected and sent to lab.
--- NOTE | 2019-08-04 20:39 | NUR ---
ADMISSION: The patient, WILLIAM KARIMI, 88 y/o, M admitted by EMERITA LEDEZMA MD, with the Diagnosis of Pnuemonia, was given written information regarding hospital policies, unit procedures and contact persons.
--- NOTE | 2019-08-04 20:40 | NUR ---
OPENING NOTES Patient Aox4, daughter in law at bed side. On venturi mask 15 L of oxygen. Patient denies pain and discomfort at this time. No signs of respiratory distress noted. HOB raised. Patient with IV site patency noted. Safety precautions in place. Bed locked and lowest position. Call light within reach, patient educated to use call light when assistance is needed, patient verbalized understanding. Will continue to monitor patient.
[2019-08-04 20:53] VITALS: BP_SYST 111
[2019-08-04] MEDS ORDERED: ACETAMINOPHEN 325 MG TABLET PO PRN (21:30)
[2019-08-04] MEDS ORDERED: ALBUTEROL SULFATE 0.083% 2.5 MG/3 ML VIAL.NEB INH PRN (21:45)
[2019-08-04] MEDS: NACL 0.9% 1,000 ML IV SCH (22:12)
--- NOTE | 2019-08-04 22:12 | NUR ---
IV FLUID HUNG iv fluid hung at this time. Patient tolerated well, no SOB. no signs of respiratory distress and discomfort noted. Safety precautions in place. Will continue to monitor.
[2019-08-04 23:25] VITALS: BP_SYST 111
[2019-08-05] VITALS (18 sets, daily range): BP systolic 101–127
--- NOTE | 2019-08-05 00:02 | NUR ---
CONSULTATION PAGED/CALLED Reason for Consultation: SOB Person Who was Notified: DIVINE Consulting Physician: DR. ZAPATA Digital Media Producer Specialty: Ordering Physician: DR. BOWMAN
--- NOTE | 2019-08-05 01:00 | NUR ---
RN ROUNDS Patient asleep at this time. No signs of respiratory distress and discomfort noted. Breathing even and unlabored. On venturi mask on 15L of o2, attached and secured. IV fluids infusing well, patency noted. Safety precautions in place. Will continue to monitor
[2019-08-05] MEDS: ALBUTEROL SULFATE 0.083% 2.5 MG/3 ML VIAL.NEB INH PRN (02:44)
--- NOTE | 2019-08-05 03:00 | NUR ---
SOB Patient verbalized shortness of breath. RT was called for PRN breathing treatment. Patient denies pain at this time. Safety precautions in place. Will continue to monitor patient.
--- NOTE | 2019-08-05 04:22 | NUR ---
SOB/CHANGE OF MASK BY RT Patient still complaints of SOB after breathing tx. O2 sat shows 87%. Charge nurse made aware. RT Change Mask from Venturi mask to Facial mask at 12L. Patient O2 sat now is 96%. No signs of respiratory distress and discomfort noted. Breathing even and unlabored. Safety precautions in place will continue to monitor patient.
--- NOTE | 2019-08-05 04:30 | NUR ---
SPOKE WITH MD Dr. larios made aware with the changes of oxygen saturation. gave new order of STAT ABG. will carry out order.
--- NOTE | 2019-08-05 05:00 | NUR ---
TRANSFER TO ICU MD order to transfer at ICU., patient has no signs of respiratory distress and discomfort noted. Safety precautions in place. Will transfer to ICU
--- NOTE | 2019-08-05 05:45 | NUR ---
Given report to ICU nurseLucia. Patient has no signs of respiratory distress and discomfort. Endorsed to ICU nurse to inform MD of changes with code status of patient.
--- NOTE | 2019-08-05 06:15 | NUR ---
TRANSFER PT TRANSFERRED TO ICU BED 3 VIA RNEY IN STABLE CONDITION. REPORT RECEIVED FROM GUANACO ROLDAN RN. PT RECEIVED IN BED AAOX4 AND ABLE TO VERBALIZE NEEDS. PT ON 100% NRB. SR ON MONITOR. LAC 20G AND RAC 18G IN PLACE, PATENT AND INTACT. SKIN IS INTACT WITH DIAPER IN PLACE, PT AND FAMILY MADE AWARE THAT WE DO NOT USE DIAPERS AT THIS FACILITY AND EDUCATED ON SKIN BREAKDOWN. PT AND FAMILY INSIST ON USAGE, PT IS ABLE TO ALERT FAMILY AND STAFF WHEN CHANGE IS NEEDED. PT SLIGHTLY SOB AT THIS TIME BUT PT STATES "IM FEELING A LOT BETTER". HOB ELEVATED, BED IN LOWEST POSITION, CALL LIGHT IN REACH. WILL CONTINUE TO MONITOR PT.
[2019-08-05] MEDS: LEVOTHYROXINE SODIUM 0.1 MG TABLET PO SCH (06:50)
[2019-08-05] MEDS: PANTOPRAZOLE SODIUM 40 MG TAB PO SCH (06:50)
--- NOTE | 2019-08-05 07:13 | NUR ---
RECEIVED NURSING REPORT FROM ROCÍO REYES R.N
[2019-08-05] MEDS: NACL 0.9% 1,000 ML IV SCH ×2 (07:30→14:32)
--- NOTE | 2019-08-05 07:38 | NUR ---
Dr. Banks at bedside examining patient
--- NOTE | 2019-08-05 07:40 | NUR ---
Paged Dr. Contreras to inform of transfer. Spoke with becky Crowell.
--- NOTE | 2019-08-05 07:40 | NUR ---
Dr. BOWMAN SEE PATIENT, AND UPDATED PATIENT,S CONDITION WITH PATIENT AND HIS FAMILY AT BEDSIDE, ORDERED KEEP FULL CODE STATUS
[2019-08-05] MEDS: ASPIRIN 81 MG TABLET(ECOTRIN) PO SCH (08:29)
[2019-08-05] MEDS: AMIODARONE HCL 200 MG TABLET PO SCH (08:29)
[2019-08-05] MEDS: METOPROLOL SUCCINATE 25 MG TAB.SR.24H (TOPROL XL) PO SCH (08:30)
[2019-08-05] MEDS: APIXABAN 2.5 MG TABLET PO SCH ×2 (08:31→20:00)
[2019-08-05] MEDS: ALLOPURINOL 300 MG TABLET (ZYLOPRIM) PO SCH (08:31)
[2019-08-05] MEDS: amLODIPine BESYLATE 10 MG TABLET PO SCH (08:33)
[2019-08-05 09:35] LABS: BASOPHILS # (AUTO) 0.1 K/uL (0.0-0.2); BASOPHILS % (AUTO) 0.3 % (0.0-2.0); HEMATOCRIT 35.2 % (36-54); HEMOGLOBIN 11.6 g/dL (14.0-18.0); LYMPHOCYTES # (AUTO) 0.3 K/uL (1.0-5.5); LYMPHOCYTES % (AUTO) 1.6 % (20.5-51.5); MEAN CORPUSCULAR HEMOGLOBIN 28 pg (27-31); MEAN CORPUSCULAR HGB CONC 33 % (32-36); MEAN CORPUSCULAR VOLUME 84 fL (79.0-98.0); MONOCYTES # (AUTO) 1.4 K/uL (0.0-1.0); MONOCYTES % (AUTO) 6.8 % (1.7-9.3); NEUTROPHILS # (AUTO) 18.4 K/uL (1.8-7.7); NEUTROPHILS % (AUTO) 91.3 % (40.0-70.0); PLATELET COUNT (AUTO) 273 K/uL (130-430); RED BLOOD CELL COUNT(AUTO) 4.19 MIL/uL (4.2-6.2); WHITE BLOOD COUNT (AUTO) 20.2 K/uL (4.8-10.8)
[2019-08-05] MEDS ORDERED: FUROSEMIDE 20 MG/2 ML VIAL IVP ONE (10:45)
[2019-08-05] MEDS ORDERED: methylPREDNISolone SOD SUCC/PF 62.5 MG/ML VIAL IVP ONE (11:00)
[2019-08-05 11:30] LABS: ALANINE AMINOTRANSFERASE 301 U/L (12-78); ALBUMIN 2.1 g/dL (3.4-4.8); ANION GAP 7 (5-15); ASPARTATE AMINOTRANSFERASE 245 U/L (10-37); CALCIUM 7.9 mg/dL (8.4-11.0); CHLORIDE 101 mmol/L (98-107); CREATININE 1.08 mg/dL (0.55-1.30); GLUCOSE 142 mg/dL (70-99); SODIUM SERUM 133 mmol/L (136-145); TOTAL BILIRUBIN 0.7 mg/dL (0.0-1.0); UREA NITROGEN, BLOOD 28 mg/dL (8-21)
--- NOTE | 2019-08-05 14:16 | NUR ---
AT 1340 P.M, Dr. ZAPATA SEE PATIENT, ORDERED FOLLOW UP 2 D ECHO CARDIOGRAM, CHEST C-T W/O CONTRAST, AND CHEST X-RAY, LAB IN TOMORROW A.M
[2019-08-05] MEDS: VANCOMYCIN HCL 1.25 GM/NS 250 ML IV SCH (14:48)
--- NOTE | 2019-08-05 15:41 | NUR ---
AT 1513 P.M TO 1530 P.M, SENT PATIENT TO C-T ROOM FOLLOW UP CHEST C-T SCAN WITH OUT CONTRAST
--- NOTE | 2019-08-05 19:03 | NUR ---
AT 1850 P.M, CALLED, ORDERED OBTAIN FLU SCREEN AND SENT TO LAB
--- NOTE | 2019-08-05 19:15 | NUR ---
OPENING NOTE SBAR REPORT RECEIVED FROM BAYLEE PARISI. CARE ASSUMED. PT LAYING IN BED. ANO X4. PT PLEASANT AND COOPERATIVE. PT ON 100% 02 NON REBREATHER. RESPIRATION EQUAL AND UNLABORED. PT TOLERATING WELL. PT SINUS RHYTHM ON MONITOR. PT HAS 20G LEFT AC RUNNING NORMAL SALINE @ 40ML/HR AND 18 G TO RIGHT AC SALINE LOCKED. PEDAL AND RADIAL PULSES NORMAL. NO EDEMA NOTED. PT ON CARDIAC LOW FAT, 2G NA, GLUTEN FREE DIET. PT SILETZ TRIBE. BILATERAL HEARING AIDS PRESENT. ABDOMEN SOFT NON DISTENDED. PT VOIDING. PT HAS SKIN TEAR TO LEFT FOREARM. BED LOCKED IN LOWEST POSITION. SAFETY PRECAUTIONS IN PLACE. CALL LIGHT WITH IN REACH. DAUGHTER IN LAW AT BEDSIDE. WILL CONTINUE TO MONITOR.
--- NOTE | 2019-08-05 19:23 | NUR ---
GIVE COMPLETE NURSING REPORT TO WIRE RIGGER GERALDO Hutton
[2019-08-05] MEDS: LevALBUTEROL HCL 1.25 MG/0.5 ML *CONC.* VIAL.NEB (XOPENEX CONC.) INH SCH (19:40)
[2019-08-05] MEDS: IPRATROPIUM BROM 0.5 MG/2.5 ML VIAL.NEB (ATROVENT) INH SCH (19:41)
[2019-08-05] MEDS: SIMVASTATIN 40 MG TABLET PO SCH (20:01)
[2019-08-05] MEDS: methylPREDNISolone SOD SUCC/PF 62.5 MG/ML VIAL IVP SCH (20:10)
[2019-08-05] MEDS ORDERED: FUROSEMIDE 20 MG/2 ML VIAL IVP SCH (21:00)
[2019-08-06] VITALS (24 sets, daily range): BP systolic 104–128
[2019-08-06] MEDS: LevALBUTEROL HCL 1.25 MG/0.5 ML *CONC.* VIAL.NEB (XOPENEX CONC.) INH SCH ×4 (00:53→19:41)
[2019-08-06] MEDS: IPRATROPIUM BROM 0.5 MG/2.5 ML VIAL.NEB (ATROVENT) INH SCH ×4 (00:54→19:41)
[2019-08-06] MEDS: methylPREDNISolone SOD SUCC/PF 62.5 MG/ML VIAL IVP SCH ×3 (03:34→20:13)
[2019-08-06 06:32] LABS: BASOPHILS % (AUTO) 0.2 % (0.0-2.0); HEMATOCRIT 33.7 % (36-54); LYMPHOCYTES # (AUTO) 0.3 K/uL (1.0-5.5); LYMPHOCYTES % (AUTO) 1.2 % (20.5-51.5); MEAN CORPUSCULAR HEMOGLOBIN 27 pg (27-31); MEAN CORPUSCULAR HGB CONC 33 % (32-36); MEAN CORPUSCULAR VOLUME 84 fL (79.0-98.0); MONOCYTES % (AUTO) 4.6 % (1.7-9.3); NEUTROPHILS # (AUTO) 20.8 K/uL (1.8-7.7); PLATELET COUNT (AUTO) 292 K/uL (130-430); RED BLOOD CELL COUNT(AUTO) 4.01 MIL/uL (4.2-6.2); RED CELL DISTRIBUTION WIDTH 18.3 % (9.0-15.0)
[2019-08-06] MEDS: LEVOTHYROXINE SODIUM 0.1 MG TABLET PO SCH (06:44)
[2019-08-06] MEDS: PANTOPRAZOLE SODIUM 40 MG TAB PO SCH (06:44)
--- NOTE | 2019-08-06 06:50 | NUR ---
Nutrition Update Hieu Scale 16 noted. Pt admitted for Pneumonia Diet: Cardiac BMI: 25.3 kg/m2 RD to follow per nutrition care standards.
[2019-08-06 06:56] LABS: ALANINE AMINOTRANSFERASE 290 U/L (12-78); ANION GAP 6 (5-15); ASPARTATE AMINOTRANSFERASE 157 U/L (10-37); CALCIUM 7.9 mg/dL (8.4-11.0); CHLORIDE 104 mmol/L (98-107); CREATININE 0.86 mg/dL (0.55-1.30); GLUCOSE 163 mg/dL (70-99); POTASSIUM 4.5 mmol/L (3.5-5.1); SODIUM SERUM 134 mmol/L (136-145); TOTAL BILIRUBIN 0.7 mg/dL (0.0-1.0); UREA NITROGEN, BLOOD 32 mg/dL (8-21)
--- NOTE | 2019-08-06 07:13 | NUR ---
RECEIVED NURSING REPORT FROM COMMUNICATION SIGNALS INTELLIGENCE GERALDO Hutton
--- NOTE | 2019-08-06 07:15 | NUR ---
CLOSING NOTE PT LAYING IN BED. NO SIGNS OR SYMPTOMS OF DISTRESS NOTED. SBAR REPORT GIVEN TO AILIN BEACH. CARE ENDORSED.
[2019-08-06 07:16] LABS: WHITE BLOOD COUNT (AUTO) 22.1 K/uL (4.8-10.8)
--- NOTE | 2019-08-06 07:30 | NUR ---
Dr. BURGOS SEE PATIENT AND UPDATED PATIENT,S CONDITION WITH PATIENT AND FAMILY
[2019-08-06] MEDS: APIXABAN 2.5 MG TABLET PO SCH ×2 (08:42→20:14)
[2019-08-06] MEDS: ALLOPURINOL 300 MG TABLET (ZYLOPRIM) PO SCH (08:43)
[2019-08-06] MEDS: ASPIRIN 81 MG TABLET(ECOTRIN) PO SCH (08:43)
[2019-08-06] MEDS: METOPROLOL SUCCINATE 25 MG TAB.SR.24H (TOPROL XL) PO SCH (08:44)
[2019-08-06] MEDS: AMIODARONE HCL 200 MG TABLET PO SCH (08:45)
--- NOTE | 2019-08-06 08:45 | NUR ---
Dr. LEDEZMA SEE PATIENT AND UPDATED PATIENT, CONDITION WITH PATIENT AND FAMILY
[2019-08-06] MEDS: FUROSEMIDE 20 MG/2 ML VIAL IVP SCH (08:49)
[2019-08-06] MEDS: amLODIPine BESYLATE 10 MG TABLET PO SCH (08:50)
[2019-08-06] MEDS ORDERED: DOCUSATE SODIUM 100 MG CAPSULE PO ONE (10:15)
--- NOTE | 2019-08-06 10:29 | NUR ---
RECEIVED LAB .RESULT: MRSA NARES POSITIVE, ORDERED ON CONTACT ISOLATION AND NOTIFY AWARE
--- NOTE | 2019-08-06 10:40 | NUR ---
RT NOTES - NIGH FLOW NASAL CANNULA PT PLACED ON NFNC 100%FIO2, 45L/M FLOW. [place] MADE AWARE. PT TOLERATING WELL. WILL CONTINUE MONITORING.
--- NOTE | 2019-08-06 10:50 | NUR ---
Dr. PATEL ORDERED START BACTROBAN OINTMENT BID THERAPY
[2019-08-06] MEDS: MUPIROCIN 2% TOPICAL OINTMENT 22 GM NS SCH ×2 (11:22→20:15)
[2019-08-06] MEDS: NACL 0.9% 1,000 ML IV SCH (14:02)
[2019-08-06] MEDS: VANCOMYCIN HCL 1.25 GM/NS 250 ML IV SCH (14:03)
--- NOTE | 2019-08-06 19:25 | NUR ---
PM SHIFT ASSESSMENT Pt is alert and oriented. Family at bedside. O2 via high flow, RR even and unlabored. Skin warm and dry. IVF infusing. Safety precautions in place. Call light within reach. Will continue to monitor.
--- NOTE | 2019-08-06 19:26 | NUR ---
GIVE COMPLETE NURSING REPORT TO MACHINE OPERATIONS SUPERVISOR REviN
[2019-08-06] MEDS: DOCUSATE SODIUM 100 MG CAPSULE PO SCH (20:14)
[2019-08-06] MEDS: SIMVASTATIN 40 MG TABLET PO SCH (20:14)
[2019-08-07] VITALS (24 sets, daily range): BP systolic 99–125
[2019-08-07] MEDS: IPRATROPIUM BROM 0.5 MG/2.5 ML VIAL.NEB (ATROVENT) INH SCH ×4 (00:32→19:45)
[2019-08-07] MEDS: LevALBUTEROL HCL 1.25 MG/0.5 ML *CONC.* VIAL.NEB (XOPENEX CONC.) INH SCH ×4 (00:33→19:44)
[2019-08-07] MEDS: methylPREDNISolone SOD SUCC/PF 62.5 MG/ML VIAL IVP SCH ×3 (03:09→22:05)
[2019-08-07 06:10] LABS: BASOPHILS % (AUTO) 0.2 % (0.0-2.0); HEMATOCRIT 33.6 % (36-54); LYMPHOCYTES # (AUTO) 0.3 K/uL (1.0-5.5); LYMPHOCYTES % (AUTO) 1.2 % (20.5-51.5); MEAN CORPUSCULAR HEMOGLOBIN 28 pg (27-31); MEAN CORPUSCULAR HGB CONC 33 % (32-36); MEAN CORPUSCULAR VOLUME 84 fL (79.0-98.0); MONOCYTES # (AUTO) 1.2 K/uL (0.0-1.0); MONOCYTES % (AUTO) 5.3 % (1.7-9.3); NEUTROPHILS # (AUTO) 21.2 K/uL (1.8-7.7); NEUTROPHILS % (AUTO) 93.3 % (40.0-70.0); PLATELET COUNT (AUTO) 313 K/uL (130-430); RED CELL DISTRIBUTION WIDTH 17.9 % (9.0-15.0); WHITE BLOOD COUNT (AUTO) 22.7 K/uL (4.8-10.8)
[2019-08-07] MEDS: LEVOTHYROXINE SODIUM 0.1 MG TABLET PO SCH (06:21)
[2019-08-07] MEDS: PANTOPRAZOLE SODIUM 40 MG TAB PO SCH (06:22)
[2019-08-07 06:32] LABS: ANION GAP 6 (5-15); CALCIUM 7.9 mg/dL (8.4-11.0); CHLORIDE 104 mmol/L (98-107); CREATININE 0.94 mg/dL (0.55-1.30); GLUCOSE 171 mg/dL (70-99); POTASSIUM 4.5 mmol/L (3.5-5.1); SODIUM SERUM 136 mmol/L (136-145); UREA NITROGEN, BLOOD 37 mg/dL (8-21)
--- NOTE | 2019-08-07 07:07 | NUR ---
RECEIVED NURSING REPORT FROM ROCÍO REYES R.N
--- NOTE | 2019-08-07 07:13 | NUR ---
ENDORSEMENT Pt care endorsed to AILIN Guy using nursing SBAR.
--- NOTE | 2019-08-07 08:00 | NUR ---
SEE PATIENT, WAS AWARE PATIENT HAD 2 NIGHTS DIDN,T SLEEPING WELL AND FEEL ANXIETY
[2019-08-07] MEDS: ASPIRIN 81 MG TABLET(ECOTRIN) PO SCH (08:56)
[2019-08-07] MEDS: DOCUSATE SODIUM 100 MG CAPSULE PO SCH ×2 (08:56→22:06)
[2019-08-07] MEDS: ALLOPURINOL 300 MG TABLET (ZYLOPRIM) PO SCH (08:56)
[2019-08-07] MEDS: FUROSEMIDE 20 MG/2 ML VIAL IVP SCH (08:57)
[2019-08-07] MEDS: AMIODARONE HCL 200 MG TABLET PO SCH (08:58)
[2019-08-07] MEDS: METOPROLOL SUCCINATE 25 MG TAB.SR.24H (TOPROL XL) PO SCH (08:58)
[2019-08-07] MEDS: amLODIPine BESYLATE 10 MG TABLET PO SCH (08:59)
[2019-08-07] MEDS: MUPIROCIN 2% TOPICAL OINTMENT 22 GM NS SCH ×2 (09:00→22:11)
[2019-08-07] MEDS: APIXABAN 2.5 MG TABLET PO SCH ×2 (09:01→22:07)
--- NOTE | 2019-08-07 12:52 | NUR ---
Dr. ZAPATA SEE PATIENT, ORDERED FOLLOW UP CBC, CMP, CHEST X-RAY IN A.M
[2019-08-07] MEDS: NACL 0.9% 1,000 ML IV SCH (14:17)
[2019-08-07] MEDS: VANCOMYCIN HCL 1.25 GM/NS 250 ML IV SCH (14:18)
--- NOTE | 2019-08-07 19:18 | NUR ---
GIVE COMPLETE NURSING REPORT TO PHYSICAL THERAPIST AIDE DIANE Hutton
--- NOTE | 2019-08-07 20:00 | NUR ---
PATIENT WAS ACCEPTED AND ASSESS DONE PATIENT ALERT AND RESPOND TO AL COMMANDS DEBRA AT BEDSIDE HELP WITH SOME OF THE CARE BEING GIVEN TO HIM PATIENT IS ON AN HI FLOW BREATHER 45,O LITER OF OXYGEN SITTING IN AN HI FLOWER POSITION ALSO PATIENT COUGH UP THICK WHITE SECRETION INSTRUCTED THE PATIENT TO USED THE SUCTION FOR THE ORAL CARE, STABLE , PATIENT TRIED TO HELP HIMSELF, WILL BECOME TOO WEAK AND SOB ,STABLE 08/08/19 0000 WAS C/O OF NOT ABLE TO TURN HEAD DUE TO THE BECAUSE OF EXTRA TUBE ON THE NASAL CANNULA SPOKE WITH RT OF THE PROBLEM , WAS ABLE TO FIX, STABLE, RESTING AT THIS TIME, STABLE
[2019-08-07] MEDS: SIMVASTATIN 40 MG TABLET PO SCH (22:05)
[2019-08-08] VITALS (24 sets, daily range): BP systolic 88–129
[2019-08-08] MEDS: LevALBUTEROL HCL 1.25 MG/0.5 ML *CONC.* VIAL.NEB (XOPENEX CONC.) INH SCH ×4 (00:59→19:40)
[2019-08-08] MEDS: IPRATROPIUM BROM 0.5 MG/2.5 ML VIAL.NEB (ATROVENT) INH SCH ×4 (00:59→19:40)
[2019-08-08] MEDS: methylPREDNISolone SOD SUCC/PF 62.5 MG/ML VIAL IVP SCH (03:37)
[2019-08-08] MEDS: VANCOMYCIN HCL 750 MG in NS 250 ML IV SCH ×2 (03:38→14:44)
--- NOTE | 2019-08-08 04:00 | NUR ---
COMPLETED AM CARE WAS GIVEN NO BM WAS NOTICE ,PATIENT HELP WITH HIS CARE TURN WELL WHILE LAYING FLAT, STABLE NO SKIN BREAK DOWN ONLY SKIN TEAR ON THE OUTER LEFT ARM, STABLE WILL CONTINUED WITH PLAN OF CARE
[2019-08-08 06:40] LABS: BASOPHILS % (AUTO) 0.1 % (0.0-2.0); HEMATOCRIT 32.5 % (36-54); HEMOGLOBIN 10.9 g/dL (14.0-18.0); LYMPHOCYTES # (AUTO) 0.3 K/uL (1.0-5.5); LYMPHOCYTES % (AUTO) 1.3 % (20.5-51.5); MEAN CORPUSCULAR HEMOGLOBIN 28 pg (27-31); MEAN CORPUSCULAR HGB CONC 34 % (32-36); MEAN CORPUSCULAR VOLUME 84 fL (79.0-98.0); MONOCYTES # (AUTO) 0.6 K/uL (0.0-1.0); MONOCYTES % (AUTO) 3.3 % (1.7-9.3); NEUTROPHILS # (AUTO) 18.7 K/uL (1.8-7.7); NEUTROPHILS % (AUTO) 95.3 % (40.0-70.0); PLATELET COUNT (AUTO) 303 K/uL (130-430); RED BLOOD CELL COUNT(AUTO) 3.89 MIL/uL (4.2-6.2); RED CELL DISTRIBUTION WIDTH 18.1 % (9.0-15.0); WHITE BLOOD COUNT (AUTO) 19.6 K/uL (4.8-10.8)
[2019-08-08] MEDS: PANTOPRAZOLE SODIUM 40 MG TAB PO SCH (06:57)
[2019-08-08] MEDS: LEVOTHYROXINE SODIUM 0.1 MG TABLET PO SCH (06:57)
[2019-08-08 07:39] LABS: ALANINE AMINOTRANSFERASE 313 U/L (12-78); ANION GAP 6 (5-15); ASPARTATE AMINOTRANSFERASE 137 U/L (10-37); CALCIUM 7.7 mg/dL (8.4-11.0); CHLORIDE 104 mmol/L (98-107); CREATININE 0.94 mg/dL (0.55-1.30); GLUCOSE 194 mg/dL (70-99); POTASSIUM 4.7 mmol/L (3.5-5.1); SODIUM SERUM 137 mmol/L (136-145); TOTAL BILIRUBIN 0.7 mg/dL (0.0-1.0); UREA NITROGEN, BLOOD 36 mg/dL (8-21)
--- NOTE | 2019-08-08 07:50 | NUR ---
AM ASSESSMENT. PT AWAKE AND ABLE TO EXPRESS HIS BASIC NEEDS, DAUGHTER IN LAW AT BEDSIDE, SHE PROVIDES CARE FOR PT'S HYGIENE, MILD ASSISTANCE NEEDED WHEN TURNING AND LIFTING PT UP IN BED, ENCOURAGED PT OR HIS FAMILY TO CALL FOR ANY ASSISTANCE WHILE IN THE UNIT, CONTINUE TO MONITOR PT.
--- NOTE | 2019-08-08 08:42 | NUR ---
ID CONSULT. DR KAPLAN AT BEDSIDE EXAMINING PT.
[2019-08-08] MEDS: FUROSEMIDE 20 MG/2 ML VIAL IVP SCH (09:05)
[2019-08-08] MEDS: MUPIROCIN 2% TOPICAL OINTMENT 22 GM NS SCH ×2 (09:05→20:37)
[2019-08-08] MEDS: ASPIRIN 81 MG TABLET(ECOTRIN) PO SCH (09:06)
[2019-08-08] MEDS: AMIODARONE HCL 200 MG TABLET PO SCH (09:06)
[2019-08-08] MEDS: DOCUSATE SODIUM 100 MG CAPSULE PO SCH ×2 (09:06→20:40)
[2019-08-08] MEDS: amLODIPine BESYLATE 10 MG TABLET PO SCH (09:07)
[2019-08-08] MEDS: METOPROLOL SUCCINATE 25 MG TAB.SR.24H (TOPROL XL) PO SCH (09:08)
[2019-08-08] MEDS: ALLOPURINOL 300 MG TABLET (ZYLOPRIM) PO SCH (09:08)
[2019-08-08] MEDS: APIXABAN 2.5 MG TABLET PO SCH ×2 (09:09→20:39)
--- NOTE | 2019-08-08 09:15 | NUR ---
G.I. WARM PRUNE JUICE SERVED DESIRED, PT STATED THAT HE LAST HAD A BOWEL MOVEMENT YESTERDAY MORNING.
[2019-08-08] MEDS: NACL 0.9% 1,000 ML IV SCH (09:17)
--- NOTE | 2019-08-08 10:30 | NUR ---
HYGIENE. CLEANED PT WITH SOAPY TOWEL AFTER A BOWEL MOVEMENT, RINSED, AND PAT SKIN DRY, MADE PT CLEAN AND COMFORTABLE IN BED.
[2019-08-08] MEDS: methylPREDNISolone SOD SUCC 40 MG/ML VIAL IVP SCH ×2 (11:44→20:37)
--- NOTE | 2019-08-08 15:50 | NUR ---
O2. PT COMPLAINING OF TIGHTNESS TO HIS FACE WHILE ON HI-FLOW, R.T. CAME IN, O2 CHANGED TO NON REBREATHER MASK, WILL CONTINUE TO MONITOR PATIENT.
--- NOTE | 2019-08-08 18:20 | NUR ---
LOC. PT TALKING TO HIS FRIEND IN THE ROOM, PT'S NEEDS ASSESSED AND ATTENDED.
--- NOTE | 2019-08-08 19:30 | NUR ---
PM ASSESSMENT REPORT RECEIVED FROM KODY PARISI. PT RECEIVED IN BED WITH EYES OPEN, AAOX4, AND ABLE TO VERBALIZE NEEDS. FAMILY IS AT BEDSIDE. VSS, NO S/S OF ACUTE DISTRESS NOTED. PT ON 100% NRB. SR ON MONITOR. LAC 20G INFUSING NS @ 40 CC/HR, RAC 18G TO SL. 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 PT DENIES ANY PAIN OR DISCOMFORT AT THIS TIME. HOB ELEVATED, BED IN LOWEST POSITION, CALL LIGHT IN REACH. WILL CONTINUE TO MONITOR PT.
[2019-08-08] MEDS: SIMVASTATIN 40 MG TABLET PO SCH (20:37)
--- NOTE | 2019-08-08 21:50 | NUR ---
O2 CHANGES PT PLACED BACK ON HIGH FLOW O2 AT 100% BY RT AT THIS TIME. WILL CONTINUE TO MONITOR PT.
--- NOTE | 2019-08-08 23:00 | NUR ---
CHG CHG BATH GIVEN AT THIS TIME. BIJAN CARE DONE AND LINENS CHANGED. PT TOLERATED WELL. WILL CONTINUE TO MONITOR PT.
[2019-08-09] VITALS (24 sets, daily range): BP systolic 105–153
[2019-08-09] MEDS: LevALBUTEROL HCL 1.25 MG/0.5 ML *CONC.* VIAL.NEB (XOPENEX CONC.) INH SCH ×4 (00:47→20:07)
[2019-08-09] MEDS: IPRATROPIUM BROM 0.5 MG/2.5 ML VIAL.NEB (ATROVENT) INH SCH ×4 (00:47→20:08)
[2019-08-09] MEDS: VANCOMYCIN HCL 750 MG in NS 250 ML IV SCH ×2 (03:03→15:15)
[2019-08-09] MEDS: methylPREDNISolone SOD SUCC 40 MG/ML VIAL IVP SCH ×3 (03:04→20:39)
--- NOTE | 2019-08-09 05:15 | NUR ---
DRESSING CHANGE DRESSING CHANGED TO LEFT FA. PT TOLERATED WELL. WILL CONTINUE TO MONITOR.
[2019-08-09 06:05] LABS: BASOPHILS # (AUTO) 0.1 K/uL (0.0-0.2); BASOPHILS % (AUTO) 0.2 % (0.0-2.0); HEMATOCRIT 34.7 % (36-54); HEMOGLOBIN 11.3 g/dL (14.0-18.0); LYMPHOCYTES # (AUTO) 0.2 K/uL (1.0-5.5); LYMPHOCYTES % (AUTO) 0.8 % (20.5-51.5); MEAN CORPUSCULAR HEMOGLOBIN 28 pg (27-31); MEAN CORPUSCULAR HGB CONC 33 % (32-36); MEAN CORPUSCULAR VOLUME 84 fL (79.0-98.0); MONOCYTES # (AUTO) 1.3 K/uL (0.0-1.0); MONOCYTES % (AUTO) 5.4 % (1.7-9.3); NEUTROPHILS # (AUTO) 21.5 K/uL (1.8-7.7); PLATELET COUNT (AUTO) 326 K/uL (130-430); RED BLOOD CELL COUNT(AUTO) 4.12 MIL/uL (4.2-6.2); RED CELL DISTRIBUTION WIDTH 17.9 % (9.0-15.0)
[2019-08-09] MEDS: PANTOPRAZOLE SODIUM 40 MG TAB PO SCH (06:22)
[2019-08-09] MEDS: LEVOTHYROXINE SODIUM 0.1 MG TABLET PO SCH (06:22)
[2019-08-09 06:27] LABS: ALANINE AMINOTRANSFERASE 368 U/L (12-78); ALBUMIN 2.1 g/dL (3.4-4.8); ANION GAP 7 (5-15); ASPARTATE AMINOTRANSFERASE 147 U/L (10-37); CALCIUM 7.8 mg/dL (8.4-11.0); CHLORIDE 100 mmol/L (98-107); CREATININE 0.96 mg/dL (0.55-1.30); GLUCOSE 227 mg/dL (70-99); POTASSIUM 4.4 mmol/L (3.5-5.1); SODIUM SERUM 131 mmol/L (136-145); TOTAL BILIRUBIN 0.7 mg/dL (0.0-1.0); UREA NITROGEN, BLOOD 31 mg/dL (8-21)
--- NOTE | 2019-08-09 07:15 | NUR ---
Opening Note Patient received awake and alert at this time with no signs of distress noted. Patient on cardiac monitor technician with NSR. Patient on 100% high flow at this time breathing evenly and unlabored. Patient has peripheral IV's infusing fluids. Patient able to eat with assist. Patient uses urinal to void. Safety precautions enforced. Call light in reach.
--- NOTE | 2019-08-09 07:38 | NUR ---
ENDORSEMENT BEDSIDE REPORT GIVEN TO AM RN USING SBAR APPROACH.
[2019-08-09] MEDS: FUROSEMIDE 20 MG/2 ML VIAL IVP SCH (08:48)
[2019-08-09] MEDS: ASPIRIN 81 MG TABLET(ECOTRIN) PO SCH (08:48)
[2019-08-09] MEDS: ALLOPURINOL 300 MG TABLET (ZYLOPRIM) PO SCH (08:48)
[2019-08-09] MEDS: amLODIPine BESYLATE 10 MG TABLET PO SCH (08:49)
[2019-08-09] MEDS: APIXABAN 2.5 MG TABLET PO SCH ×2 (08:50→20:40)
[2019-08-09] MEDS: METOPROLOL SUCCINATE 25 MG TAB.SR.24H (TOPROL XL) PO SCH (08:52)
[2019-08-09] MEDS: AMIODARONE HCL 200 MG TABLET PO SCH (08:53)
[2019-08-09] MEDS: DOCUSATE SODIUM 100 MG CAPSULE PO SCH ×2 (08:55→20:40)
[2019-08-09 10:52] LABS: NEUTROPHILS % (AUTO) 93.6 % (40.0-70.0)
[2019-08-09] MEDS: MUPIROCIN 2% TOPICAL OINTMENT 22 GM NS SCH ×2 (13:55→20:41)
[2019-08-09] MEDS: NACL 0.9% 1,000 ML IV SCH (13:55)
--- NOTE | 2019-08-09 14:55 | NUR ---
Dietitian Recommendations * Recommend continuing cardiac, gluten-free diet [address] RD Please refer to Nutrition Assessment for details. Addendum: 08/09/19 at [address] Amended: Links added.
--- NOTE | 2019-08-09 19:45 | NUR ---
Opening note Pt in bed, AAO, SR on the monitor. Pt has High flow O2 @ 100%. No s/s of distress noted. Pt saturating in the low 90s. No s/s of distress noted however. Pt denies any SOB. Pt has a LAC 20g SL and a RAC 18g running IVF. Pt tolerating. No s/s of infiltration noted. Site is C/D/I. Pt has urinal at bedside, able to call when needed. Bed locked in lowest position, call light in reach, and safety precautions in place. Will continue to monitor.
--- NOTE | 2019-08-09 19:46 | NUR ---
Closing Note Patient endorsed to slot shift supervisor RN using SBAR format. Patient in no signs of distress at this time.
[2019-08-09] MEDS: SIMVASTATIN 40 MG TABLET PO SCH (20:40)
--- NOTE | 2019-08-09 21:45 | NUR ---
CHG CHG bath given and linens changed. Pt tolerated well. No s/s of distress noted. Pt able to help turn when needed. Pt tolerating High Flow O2 w/ periods of distress, Pt states its d/t anxiety. Pt Will continue to monitor.
[2019-08-10] VITALS (25 sets, daily range): BP systolic 100–150
[2019-08-10] MEDS: ALPRAZolam 0.25 MG TABLET PO PRN ×2 (00:25→21:05)
[2019-08-10] MEDS: LevALBUTEROL HCL 1.25 MG/0.5 ML *CONC.* VIAL.NEB (XOPENEX CONC.) INH SCH ×4 (01:00→23:19)
--- NOTE | 2019-08-10 01:00 | NUR ---
RN Rounds Pt in bed attempting to sleep. Anxious at times. PRN medication given. Respiratory distress noted when Pt attempts to turn by himself or exert too much energy. Saturations seen in the low-mid 80s. Educated Pt on furthering titrated of O2 to maybe BIPAP machine or possible intubation if distress not relieved. Pt understanding of teaching. Does not wish to be intubated or have BIPAP at this time. States that he will be ok, and just needs to catch his breath. Pt lifted up in bed, and laying in elevated position. Will continue to monitor. Pt denies any SOB at this time.
[2019-08-10] MEDS: IPRATROPIUM BROM 0.5 MG/2.5 ML VIAL.NEB (ATROVENT) INH SCH ×4 (01:44→23:18)
[2019-08-10] MEDS: ALBUTEROL SULFATE 0.083% 2.5 MG/3 ML VIAL.NEB INH PRN (01:44)
[2019-08-10] MEDS: VANCOMYCIN HCL 750 MG in NS 250 ML IV SCH ×2 (02:32→14:30)
--- NOTE | 2019-08-10 03:50 | NUR ---
RN Rounds Pt in bed attempting to sleep. O2 in the high 80s to low 90s. Pt denies any SOB or distress. All other VSS. Will continue to monitor.
[2019-08-10] MEDS: methylPREDNISolone SOD SUCC 40 MG/ML VIAL IVP SCH ×3 (04:29→21:05)
--- NOTE | 2019-08-10 05:12 | NUR ---
IV LAC IV leaking, unable to restore. IV d/c'ed. New IV, Rt hand 20g started. Pt tolerated well. Flushed with Ns, Blood return present. Will continue to monitor.
[2019-08-10] MEDS: LEVOTHYROXINE SODIUM 0.1 MG TABLET PO SCH (06:02)
[2019-08-10] MEDS: PANTOPRAZOLE SODIUM 40 MG TAB PO SCH (06:02)
[2019-08-10 06:23] LABS: BASOPHILS # (AUTO) 0.1 K/uL (0.0-0.2); BASOPHILS % (AUTO) 0.3 % (0.0-2.0); HEMATOCRIT 32.8 % (36-54); HEMOGLOBIN 10.9 g/dL (14.0-18.0); LYMPHOCYTES # (AUTO) 0.3 K/uL (1.0-5.5); LYMPHOCYTES % (AUTO) 1.2 % (20.5-51.5); MEAN CORPUSCULAR HEMOGLOBIN 28 pg (27-31); MEAN CORPUSCULAR HGB CONC 33 % (32-36); MEAN CORPUSCULAR VOLUME 84 fL (79.0-98.0); MONOCYTES # (AUTO) 1.1 K/uL (0.0-1.0); MONOCYTES % (AUTO) 4.6 % (1.7-9.3); PLATELET COUNT (AUTO) 275 K/uL (130-430); RED BLOOD CELL COUNT(AUTO) 3.92 MIL/uL (4.2-6.2); RED CELL DISTRIBUTION WIDTH 17.9 % (9.0-15.0); WHITE BLOOD COUNT (AUTO) 23.4 K/uL (4.8-10.8)
--- NOTE | 2019-08-10 06:40 | NUR ---
Closing Note Pt in bed, AAO. SR on the monitor, w/ occasional PVCs. Pt on high flow O2 @100%. Pt O2 in the high 80s to low 90s. Pt denies any SOB. Resp distress noted when Pt exerts too much energy. Pt denying wanting to shave his burciaga to use BIPAP, and at this time does not wish to be extubated. Pt states he will think about it down the road. Pt has Rt Hand 20g in place running IVF. No s/s of infiltration noted, no s/s of leaking noted. IV sites C/D/I. Urinal is at bedside, Pt family at bedside able to help Pt with urinal. Pt is incontinent at times. No stool noted this shift. Pt skin intact. Bed locked in lowest position, call light in reach, and safety precautions in place. Will endorse to oncoming RN.
[2019-08-10 06:42] LABS: ANION GAP 2 (5-15); CALCIUM 7.7 mg/dL (8.4-11.0); CHLORIDE 102 mmol/L (98-107); GLUCOSE 198 mg/dL (70-99); POTASSIUM 4.4 mmol/L (3.5-5.1); SODIUM SERUM 131 mmol/L (136-145); UREA NITROGEN, BLOOD 26 mg/dL (8-21)
--- NOTE | 2019-08-10 07:08 | NUR ---
Endorsement Report given to oncoming RN at bedside via SBAR approach.
--- NOTE | 2019-08-10 07:15 | NUR ---
Opening Note Patient received awake and alert at this time with no signs of distress noted. Patient on high flow oxygen receiving FiO2 95%. Patient does not complain of SOB at this time and is not in distress. Patient has a peripheral IV receiving fluids. Patient uses urinal to void. Safety precautions enforced. Reinforce patient on use of call light.
[2019-08-10] MEDS: FUROSEMIDE 20 MG/2 ML VIAL IVP SCH (08:34)
[2019-08-10] MEDS: ASPIRIN 81 MG TABLET(ECOTRIN) PO SCH (08:34)
[2019-08-10] MEDS: ALLOPURINOL 300 MG TABLET (ZYLOPRIM) PO SCH (08:35)
[2019-08-10] MEDS: amLODIPine BESYLATE 10 MG TABLET PO SCH (08:35)
[2019-08-10] MEDS: AMIODARONE HCL 200 MG TABLET PO SCH (08:35)
[2019-08-10] MEDS: MUPIROCIN 2% TOPICAL OINTMENT 22 GM NS SCH ×2 (08:36→21:10)
[2019-08-10] MEDS: METOPROLOL SUCCINATE 25 MG TAB.SR.24H (TOPROL XL) PO SCH (08:36)
[2019-08-10] MEDS: APIXABAN 2.5 MG TABLET PO SCH ×2 (08:37→21:05)
[2019-08-10] MEDS: DOCUSATE SODIUM 100 MG CAPSULE PO SCH ×2 (08:38→21:05)
--- NOTE | 2019-08-10 09:20 | NUR ---
MD Rounds Dr. Leroy at bedside to examine patient. MD explained prognosis and plan of care.
--- NOTE | 2019-08-10 09:20 | NUR ---
RN Update RN clarified patient's wishes regarding code status. Patient requested to not be intubated. Attending MD to visit patient again for code status.
--- NOTE | 2019-08-10 09:30 | NUR ---
MD Rounds Dr. Contreras at bedside for examination.
--- NOTE | 2019-08-10 10:17 | NUR ---
PICC line order Received PICC line order from Dr. Contreras. Witnessed patient sign consent form.
--- NOTE | 2019-08-10 10:40 | NUR ---
Code Status Code status changed to modified code: do not intubate. signed code status form.
[2019-08-10 11:28] LABS: NEUTROPHILS % (AUTO) 93.9 % (40.0-70.0)
--- NOTE | 2019-08-10 12:00 | NUR ---
RN Rounds Patient becoming short of breath, O2 saturation in the 80% to low 90%. Daughter in law at bedside to assist with care. Patient and caregiver educated regarding HOB being at the highest position during meals.
[2019-08-10] MEDS: NACL 0.9% 1,000 ML IV SCH (13:45)
--- NOTE | 2019-08-10 16:00 | NUR ---
RN Rounds Patient remains short of breath but states he is "okay." Patient admits to feeling weak at this time. Patient assisted with care with daughter in law at bedside.
--- NOTE | 2019-08-10 19:33 | NUR ---
Closing Note Patient endorsed to manager shift RN using SBAR format. Safety precautions enforced at this time and reinforced use of call light. Patient reeducated regarding taking deep breaths, relaxation, and asking for assistance before any activities.
--- NOTE | 2019-08-10 19:34 | NUR ---
Opening Note Pt in bed AAO. SR on the monitor, On high flow O2 @100%. Pt having resp distress, but does not wish to have BIPAP. Educated at bedside about benefit of BIPAP, still refusing. Family at bedside aware. Pt has Rt hand 20g in place, IVF running. Bed locked in lowest position, call light in reach, ans safety precautions in place. Will continue to monitor.
--- NOTE | 2019-08-10 19:45 | NUR ---
DNR Discussed with Pt code status, and Pt aware, now wants to be a DNR. Pt educated on DNR Code Status and wishes to proceed. Primary MD to be called for update. Will continue to monitor.
--- NOTE | 2019-08-10 20:08 | NUR ---
Pt now requesting BIPAP. States he is willing to give it a try if it will help ease his breathing. Still wishes to be DNR status.
--- NOTE | 2019-08-10 20:10 | NUR ---
Pt refusing PICC Line at this time. Educated on Risk vs Benefit. Family at bedside aware. Will continue to monitor.
--- NOTE | 2019-08-10 20:23 | NUR ---
MD Called Spoke w/ Dr. Wills regarding Pt status. Orders for BIPAP received, will carry out as ordered.
--- NOTE | 2019-08-10 20:50 | NUR ---
MD Called Dr. Banks called and made aware of Pt's want of DNR status. ok'ed, 2nd RN witnessed. Palliative care consult ordered.
[2019-08-10] MEDS: SIMVASTATIN 40 MG TABLET PO SCH (21:04)
--- NOTE | 2019-08-10 21:15 | NUR ---
Pt refusing does not wish to be on BIPAP anymore. States it is too uncomfortable. Placed back on High Flow O2 @ 100%.
--- NOTE | 2019-08-10 23:10 | NUR ---
Pt now becoming agitated and combative. Pt demanding to leave. Dr. Wills paged for orders.
[2019-08-10] MEDS ORDERED: MORPHINE 2 MG/ML INJ. SYRINGE IVP PRN (23:15)
--- NOTE | 2019-08-10 23:15 | NUR ---
MD Called Spoke w/ Dr. Wills regarding pt orders. Orders received, will carry out as ordered.
[2019-08-10] MEDS ORDERED: LORazepam 2 MG/ML VIAL ONE (23:20)
[2019-08-10] MEDS ORDERED: MORPHINE 4 MG/ML INJ. SYRINGE ONE (23:25)
[2019-08-10] MEDS: LORazepam 2 MG/ML VIAL IVP PRN (23:30)
[2019-08-10] MEDS: MORPHINE 4 MG/ML INJ. SYRINGE IVP PRN (23:41)
[2019-08-11] VITALS (24 sets, daily range): BP systolic 109–134
--- NOTE | 2019-08-11 00:30 | NUR ---
RN Round Pt family leaving for the night, Pt in bed resting, no s/s of distress noted. Saturating in the 80s w/ High O2 @ 100%.
[2019-08-11] MEDS: NACL 0.9% 1,000 ML IV SCH (00:43)
[2019-08-11] MEDS ORDERED: VANCOMYCIN HCL 1 GM/NS PREMIX 250 ML IV SCH (03:00)
--- NOTE | 2019-08-11 03:10 | NUR ---
RN Rounds Pt in bed asleep. Saturating in the high 70s- Low 80s. Pt is tachypneic at this time. All of VS remains stable. Will continue to monitor.
[2019-08-11] MEDS: LORazepam 2 MG/ML VIAL IVP PRN (04:47)
[2019-08-11] MEDS: methylPREDNISolone SOD SUCC 40 MG/ML VIAL IVP SCH (04:47)
--- NOTE | 2019-08-11 05:23 | NUR ---
Pt in bed asleep. No s/s of distress noted. Pt saturating in the mid-high 80s. Remains on High flow @100%. Will continue to monitor.
[2019-08-11] MEDS: PANTOPRAZOLE SODIUM 40 MG TAB PO SCH (06:01)
[2019-08-11] MEDS: LEVOTHYROXINE SODIUM 0.1 MG TABLET PO SCH (06:02)
[2019-08-11 06:56] LABS: ANION GAP -1 (5-15); CALCIUM 7.3 mg/dL (8.4-11.0); CHLORIDE 105 mmol/L (98-107); GLUCOSE 160 mg/dL (70-99); POTASSIUM 4.9 mmol/L (3.5-5.1); SODIUM SERUM 137 mmol/L (136-145); UREA NITROGEN, BLOOD 26 mg/dL (8-21)
[2019-08-11 07:00] LABS: BASOPHILS # (AUTO) 0.1 K/uL (0.0-0.2); BASOPHILS % (AUTO) 0.4 % (0.0-2.0); EOSINOPHILS % (AUTO) 0.1 % (0.0-4.0); HEMATOCRIT 35.1 % (36-54); HEMOGLOBIN 11.5 g/dL (14.0-18.0); LYMPHOCYTES # (AUTO) 0.4 K/uL (1.0-5.5); LYMPHOCYTES % (AUTO) 1.8 % (20.5-51.5); MEAN CORPUSCULAR HEMOGLOBIN 28 pg (27-31); MEAN CORPUSCULAR HGB CONC 33 % (32-36); MEAN CORPUSCULAR VOLUME 84 fL (79.0-98.0); MONOCYTES # (AUTO) 0.9 K/uL (0.0-1.0); MONOCYTES % (AUTO) 3.7 % (1.7-9.3); NEUTROPHILS # (AUTO) 22.6 K/uL (1.8-7.7); PLATELET COUNT (AUTO) 268 K/uL (130-430); RED BLOOD CELL COUNT(AUTO) 4.18 MIL/uL (4.2-6.2); RED CELL DISTRIBUTION WIDTH 17.9 % (9.0-15.0); WHITE BLOOD COUNT (AUTO) 24.1 K/uL (4.8-10.8)
--- NOTE | 2019-08-11 07:14 | NUR ---
Endorsement Pt in bed asleep. Remains on high flow O2 @ 100%. Pt slightly tachypneic, saturating in the 80s. Pt IV remains intact, SR on the monitor. Report given to oncoming RN at bedside via SBAR approach.
[2019-08-11] MEDS: LevALBUTEROL HCL 1.25 MG/0.5 ML *CONC.* VIAL.NEB (XOPENEX CONC.) INH SCH ×3 (07:25→19:00)
[2019-08-11] MEDS: IPRATROPIUM BROM 0.5 MG/2.5 ML VIAL.NEB (ATROVENT) INH SCH ×3 (07:25→19:00)
--- NOTE | 2019-08-11 07:50 | NUR ---
AM ASSESSMENT. PT SEEN LETHARGIC, ON HI-FLOW AT 100%, REPOSITIONED IN BED, BREATHING DEEP, SATURATION IN THE HIGH 80'S, PT'S HAND WITH PULSE OXIMETER WRAPPED WITH TOWEL TO BRING WARMTH TO HIM, THEN APPLIED ANOTHER LAYER OF BLANKET OVER HIM, R.T. CAME IN TO CHECK PT.
[2019-08-11] MEDS: DOCUSATE SODIUM 100 MG CAPSULE PO SCH (09:00)
[2019-08-11] MEDS: ASPIRIN 81 MG TABLET(ECOTRIN) PO SCH (09:00)
[2019-08-11] MEDS: amLODIPine BESYLATE 10 MG TABLET PO SCH (09:00)
[2019-08-11] MEDS: AMIODARONE HCL 200 MG TABLET PO SCH (09:00)
[2019-08-11] MEDS: ALLOPURINOL 300 MG TABLET (ZYLOPRIM) PO SCH (09:00)
[2019-08-11] MEDS: METOPROLOL SUCCINATE 25 MG TAB.SR.24H (TOPROL XL) PO SCH (09:00)
[2019-08-11] MEDS: APIXABAN 2.5 MG TABLET PO SCH (09:00)
--- NOTE | 2019-08-11 10:00 | NUR ---
HYGIENE. PT INCONTINENT OF HIS BLADDER, CLEANED PT WITH WET TOWELS, AND MADE DRY, CLEAN SHEETS PROVIDED. TURNED TO HIS SIDE.
[2019-08-11] MEDS: FUROSEMIDE 20 MG/2 ML VIAL IVP SCH (10:02)
[2019-08-11] MEDS: MUPIROCIN 2% TOPICAL OINTMENT 22 GM NS SCH (10:02)
--- NOTE | 2019-08-11 12:45 | NUR ---
LOC. PT'S [id number] CALLED OUT FOR HELP, PATIENT TRIED TO GRAB HIS O2 TUBING, PULLED OUT HIS EKG, AND HIS GOWN, SAYING "I'M HOT." WENT TO ANSWER PT'S NEEDS, REPLACING HIS EKG ELECTRODES, FANNING PT WITH SHEETS OF PAPER, HE CALMED DOWN QUITE A BIT. PT EXPRESSED NEED TO URINATE, THEN HE DID IT ON THE BED. DR MARTIN CAME IN TO EXAMINE PT, PT GAVE A DIRTY FINGER TO THE DOCTOR THEN PULLED OUT ALL HIS OXYGEN DEVICE FROM HIS FACE. PT NOT COOPERATING WITH NURSE WHEN TRIED TO REPLACE HIS O2, AGGRESSIVELY TWISTING NURSE'S FINGER, MOVED HIS ONE LEG TO AIR TO KICK SOMEBODY ON THE HEAD, AND SLAPPING THE ARM WELL. JUST ABOUT TO CLEAN THE PATIENT, HIS LIPS TURNED CYANOTIC, GASPING FOR AIR, BRADYCARDIC THEN IMMEDIATELY REPLACED HIS O2 BACK. PT'S [id number] EXPRESSED, "YESTERDAY HE TOLD ME THAT HE DID NOT WANT ANYTHING DONE TO REVIVE HIM."
--- NOTE | 2019-08-11 14:10 | NUR ---
HYGIENE. PT SAYING "I HAVE TO PEE", ALLOWED PT TO USE THE URINAL, BUT DRIPS URINE TO THE BRIM OF THE BOTTLE, CLEANED PT WELL WITH WET TOWEL AFTER VOIDING, DRY SHEET PROVIDED.
--- NOTE | 2019-08-11 17:54 | NUR ---
NURSING. HEARD PT COUGHING, HEAD OF BED PLACED AT HIGHER ANGLE, ORALLY SUCTIONED VIA YANKAUER, HAD SMALL AMOUNT OF PHLEGM , ORAL CARE DONE.
--- NOTE | 2019-08-11 19:45 | NUR ---
Opening Note Pt in bed, more alert, but confused. Pt SR on the monitor, High Flow O2 @ 100%. Pt saturating in the low-mid 80s. Pt has Rt hand 20g in place running IVF. No s/s of infiltration noted, Site is C/D/I. Pt Family at bedside. Bed locked in lowest position, call light in reach, and safety precautions in place. Will continue to monitor.
--- NOTE | 2019-08-11 21:00 | NUR ---
Endorsement Report given to RN at bedside via SBAR approach.
--- NOTE | 2019-08-11 21:05 | NUR ---
Opening Note Received patient report via SBAR communication from endorsing nurse
--- NOTE | 2019-08-11 21:30 | NUR ---
Nursing Note Patient had instance of urinary incontinence, patient cleaned, gown changed, linens changed. Patient placed in semi-fowlers with HI-Flow O2 and Non-Rebreather mask at 100%, patient O2 saturation at mid 80s.
[2019-08-11] MEDS: MORPHINE 4 MG/ML INJ. SYRINGE IVP PRN (22:59)
[2019-08-12] VITALS (24 sets, daily range): BP systolic 122–150
[2019-08-12] MEDS: NACL 0.9% 1,000 ML IV SCH (00:04)
[2019-08-12] MEDS: LORazepam 2 MG/ML VIAL IVP PRN ×3 (00:05→03:58)
--- NOTE | 2019-08-12 00:30 | NUR ---
Nursing Note Patient appears to have increased agitation, O2 Saturation at 72%, PRN medication offered and administered
[2019-08-12] MEDS: LevALBUTEROL HCL 1.25 MG/0.5 ML *CONC.* VIAL.NEB (XOPENEX CONC.) INH SCH ×4 (01:00→19:00)
[2019-08-12] MEDS: IPRATROPIUM BROM 0.5 MG/2.5 ML VIAL.NEB (ATROVENT) INH SCH ×4 (01:00→19:00)
--- NOTE | 2019-08-12 02:00 | NUR ---
Nursing Note Patient in bed with eyes closed, appears to be asleep. O2 saturation is between 70-80%, patient is tachypneic, all other vitals are stable
--- NOTE | 2019-08-12 04:00 | NUR ---
Nursing Note Patient requested PRN medication for anxiety, medication administered. Patient O2 saturation between 70-80%, patient is tachypneic.
--- NOTE | 2019-08-12 06:00 | NUR ---
Nursing Note Patient had urinary incontinence, patient cleaned, linens changed, repositioned. Patient tolerated well
[2019-08-12 06:41] LABS: ALANINE AMINOTRANSFERASE 482 U/L (12-78); ALBUMIN 2.1 g/dL (3.4-4.8); ANION GAP 3 (5-15); ASPARTATE AMINOTRANSFERASE 210 U/L (10-37); CALCIUM 7.5 mg/dL (8.4-11.0); CHLORIDE 104 mmol/L (98-107); CREATININE 0.68 mg/dL (0.55-1.30); GLUCOSE 140 mg/dL (70-99); POTASSIUM 4.4 mmol/L (3.5-5.1); SODIUM SERUM 139 mmol/L (136-145); TOTAL BILIRUBIN 1.1 mg/dL (0.0-1.0); UREA NITROGEN, BLOOD 29 mg/dL (8-21)
[2019-08-12 06:47] LABS: HEMATOCRIT 37.7 % (36-54); HEMOGLOBIN 12.2 g/dL (14.0-18.0); MEAN CORPUSCULAR HEMOGLOBIN 28 pg (27-31); MEAN CORPUSCULAR HGB CONC 32 % (32-36); MEAN CORPUSCULAR VOLUME 85 fL (79.0-98.0); PLATELET COUNT (AUTO) 224 K/uL (130-430); RED BLOOD CELL COUNT(AUTO) 4.43 MIL/uL (4.2-6.2); RED CELL DISTRIBUTION WIDTH 18.2 % (9.0-15.0); WHITE BLOOD COUNT (AUTO) 25.4 K/uL (4.8-10.8)
--- NOTE | 2019-08-12 07:14 | NUR ---
Closing Note Patient report given via SBAR communication to daysmift nurse
[2019-08-12 07:40] LABS: ATYPICAL LYMPHOCYTES % 0 % (0-0); BAND % (MANUAL) 2 % (0-6); BASOPHILS % (MANUAL) 0 % (0-2); EOSINOPHILS % (MANUAL) 0 % (0-7); LYMPHOCYTES % (MANUAL) 3 % (20-46); MONOCYTES % (MANUAL) 4 % (0-11)
--- NOTE | 2019-08-12 07:50 | NUR ---
AM ASSESSMENT PT OPENED HIS EYES TO LIGHT STIMULI, EYES MOVING AND LOOKING FOR HIS [id number], SHE STEPPED OUT OF THE ROOM, PT ASKED HELP TO URINATE, URINAL PROVIDED, VOIDED 50 ML, CONTINUE TO MONITOR PT.
--- NOTE | 2019-08-12 09:50 | NUR ---
IV ULTRA SOUND OF THE ABDOMEN JUST ABOUT TO COMPLETE, PT'S IV IN RIGHT HAND CAME OUT ACCIDENTALLY. STARTED AN IV INTO LEFT HAND, USING 20 GAUGE CATHETER, WITH GOOD BLOOD RETURN NOTED.
[2019-08-12] MEDS: MORPHINE 4 MG/ML INJ. SYRINGE IVP PRN ×3 (10:32→20:12)
--- NOTE | 2019-08-12 10:32 | NUR ---
DISCOMFORT. PT TACHYPNEIC, AND VERBALIZED, "HURTS HERE", RUBBING HIS ABDOMEN/CHEST, MEDICATED WITH MORPHINE 3 MG IVP.
--- NOTE | 2019-08-12 11:35 | NUR ---
Marie SAWYER AT BEDSIDE EXAMINING PT.
--- NOTE | 2019-08-12 18:00 | NUR ---
PAIN. PT TALKING TO HIS SON AND FRIENDS, VERBALIZED GENERALIZED BODY DISCOMFORTS, MORPHINE 3 MG IVP GIVEN FOR COMFORT.
--- NOTE | 2019-08-12 19:15 | NUR ---
PM SHIFT ASSESSMENT Pt is awake and alert. O2 via NRB and high flow. IVF infusing. SR noted on monitor. Safety precautions in place, call light within reach. Will continue to monitor.
[2019-08-13] VITALS (11 sets, daily range): BP systolic 91–141
[2019-08-13] MEDS: MORPHINE 4 MG/ML INJ. SYRINGE IVP PRN (00:02)
[2019-08-13] MEDS: LORazepam 2 MG/ML VIAL IVP PRN (01:50)
[2019-08-13] MEDS: NACL 0.9% 1,000 ML IV SCH (01:51)
[2019-08-13 06:37] LABS: BASOPHILS # (AUTO) 0.1 K/uL (0.0-0.2); BASOPHILS % (AUTO) 0.3 % (0.0-2.0); EOSINOPHILS % (AUTO) 0.1 % (0.0-4.0); HEMATOCRIT 38.7 % (36-54); HEMOGLOBIN 12.8 g/dL (14.0-18.0); LYMPHOCYTES # (AUTO) 0.5 K/uL (1.0-5.5); LYMPHOCYTES % (AUTO) 1.6 % (20.5-51.5); MEAN CORPUSCULAR HEMOGLOBIN 28 pg (27-31); MEAN CORPUSCULAR HGB CONC 33 % (32-36); MEAN CORPUSCULAR VOLUME 85 fL (79.0-98.0); MONOCYTES # (AUTO) 1.4 K/uL (0.0-1.0); MONOCYTES % (AUTO) 4.4 % (1.7-9.3); NEUTROPHILS # (AUTO) 29.6 K/uL (1.8-7.7); NEUTROPHILS % (AUTO) 93.6 % (40.0-70.0); PLATELET COUNT (AUTO) 141 K/uL (130-430); RED BLOOD CELL COUNT(AUTO) 4.58 MIL/uL (4.2-6.2); RED CELL DISTRIBUTION WIDTH 18.4 % (9.0-15.0)
--- NOTE | 2019-08-13 07:07 | NUR ---
ENDORSEMENT Pt care endorsed to Mervat PARISI using nursing SBAR.
[2019-08-13 07:13] LABS: ALANINE AMINOTRANSFERASE 508 U/L (12-78); ALBUMIN 2.3 g/dL (3.4-4.8); ANION GAP 5 (5-15); ASPARTATE AMINOTRANSFERASE 215 U/L (10-37); CALCIUM 7.7 mg/dL (8.4-11.0); CHLORIDE 106 mmol/L (98-107); CREATININE 0.79 mg/dL (0.55-1.30); GLUCOSE 148 mg/dL (70-99); POTASSIUM 4.7 mmol/L (3.5-5.1); SODIUM SERUM 143 mmol/L (136-145); TOTAL BILIRUBIN 2.7 mg/dL (0.0-1.0); UREA NITROGEN, BLOOD 37 mg/dL (8-21)
--- NOTE | 2019-08-13 08:00 | NUR ---
PATIENT WAS ACCEPTED ASSESS DONE PATIENT COLOR DUSKY SKIN COOL TO TOUCH OXYGEN BOTH KIND WERE INTACT AT 100%, NO REPOND FROM THE PATIENT FAMILY AT BEDSIDE ,NO URINE OR BM WAS NOTICE CHEST HAD SCATTERED RHONCHI SITTING IN AN HI FLOW POSITION BP IS LOW WILL CONTINUED WITH MONITOR THE PATIENT ,DR LEDEZMA WAS HERE TO PLAN FOR AN MORPHINE DRIP AND MOVED TO FLOOR OFF THE MONITOR, PATIENT IS AN DNR, STABLE 1000 NOTICE THE PATIENT HAD GONE STRAIGHT LINE AND PATIENT WAS NOT BREATH , THE FAMILY AT BEDSIDE NOTICE THE CHANGE IN THE PATIENT , LISTEN TO THE PATIENT HEART CHEST COLOR VERY PALLOR CHARGE NURSE WAS INFORMED CAME HAD THE PATIENT PRONUNCE TIME OF WAS 1030 WAITING FOR THE MORTERY TO COME ,PATIENT WAS CLEAN AND PLACE IN BODY BAG
--- NOTE | 2019-08-13 11:00 | NUR ---
PT IS DNR STATUS, COMFORT MEASURES ONLY. PATIENT IN UNRESPONSIVE TO ANY FORM OF STIMULI. NOTED TO HAVE NO BLOOD PRESSURE, NO HEART BEAT, PUPILS FIXED AND DILATED, ASYSTOLE ON THE MONITOR. DNR STATUS. PATIENT PRONOUNCED BY MYSELF AND WITNESSED BY SALIMA CAMARA, WAREHOUSING TECHNICIAN AT BEDSIDE, AWARE OF PT .
[2019-08-14 10:47] LABS: WHITE BLOOD COUNT (AUTO) 31.6 K/uL (4.8-10.8)
== END 2019-08-13 11:00 | disposition expired | DRG 871 ==
LOC: SED 16:17 → STU 19:31 → SIC 08-05 06:15
PROVIDERS: ADMIT Internal Medicine Hospice and Palliative Medicine; ATTEND Internal Medicine Hospice and Palliative Medicine
DX: A41.9 Sepsis, unspecified organism (principal); J15.212 Pneumonia due to Methicillin resistant Staphylococcus aureus; J96.01 Acute respiratory failure with hypoxia; G93.41 Metabolic encephalopathy; E87.1 Hypo-osmolality and hyponatremia; J44.0 Chronic obstructive pulmonary disease with (acute) lower respiratory infection; J61 Pneumoconiosis due to asbestos and other mineral fibers; E03.9 Hypothyroidism, unspecified; E78.5 Hyperlipidemia, unspecified; I11.0 Hypertensive heart disease with heart failure; I25.10 Atherosclerotic heart disease of native coronary artery without angina pectoris; I48.91 Unspecified atrial fibrillation; I50.9 Heart failure, unspecified; I46.9 Cardiac arrest, cause unspecified; Z51.5 Encounter for palliative care; M10.9 Gout, unspecified; Z79.01 Long term (current) use of anticoagulants; I25.2 Old myocardial infarction; Z82.49 Family history of ischemic heart disease and other diseases of the circulatory system; Z83.3 Family history of diabetes mellitus; Z85.46 Personal history of malignant neoplasm of prostate; Z87.01 Personal history of pneumonia (recurrent); Z87.891 Personal history of nicotine dependence; Z88.0 Allergy status to penicillin; Z88.1 Allergy status to other antibiotic agents; Z90.79 Acquired absence of other genital organ(s); Z91.19 Patient's noncompliance with other medical treatment and regimen; Z95.1 Presence of aortocoronary bypass graft; Z88.8 Allergy status to other drugs, medicaments and biological substances; Z88.5 Allergy status to narcotic agent; Z79.82 Long term (current) use of aspirin
CPT/HCPCS: 36415; 36600; 71045; 71250-TC; 76700-TC; 80048; 80053; 80202-TC; 82550-TC; 82803-TC; 83605; 83690-TC; 83880; 84484; 85007; 85025; 85027; 85610-TC; 85730-TC; 86710; 87040-TC; 87081; 93005; 94640; 94660; 96365; 96368; 96375; 99285; G0378; J1030; J1940; J1956; J2060; J2270; J2930; J3370; J3475; J3490; J7030; J7050; J7612; J7613